=== PATIENT | male | born 1985 | race Caucasian/White ===

== ENCOUNTER 2020-04-16 01:03 | Emergency (ER) | payer MEDICAID, SELFPAY ==
[2020-04-16] VITALS (7 sets, daily range): BP systolic 108–152; BP diastolic 62–80; PULSE 78–105; RESP 16–20; TEMP 36.4–37.1; O2SAT 97–98; BMI 22.9
--- NOTE | 2020-04-16 02:34 | ED_ITS ---
HPI - Alcohol General Chief Complaint: ETOH/Substance Use Stated Complaint: etoh crisis Time Seen by Provider: 04/16/20 02:34 Source: patient and EMS Mode of arrival: EMS Limitations: altered mental status (Intoxicated) History of Present Illness HPI narrative: Patient's history of alcohol abuse and depression been drinking heavily lately per patient's , patient came here intoxicated no signs of head injury, patient with history of depression and been drinking heavily because of depression patient been to detox multiple times last time was about 2 months ago and stayed sober for 1 week patient denied any suicidal ideation MD complaint: alcohol intoxication and alcohol dependence Last drink: Hours (ago) Chronic alcohol use: Yes Previous visits for alcohol intoxication: Yes Recent trauma: No Associated symptoms: nausea and vomiting Treatments prior to arrival: none Related Data Allergies Allergy/AdvReac Type Severity Reaction Status Date / Time No Known Allergies Allergy Unverified 01/10/20 19:47 [No Known Allergies*] Review of Systems Review of Systems: Yes Unobtainable due to mental status PMFSH Past Medical History Medical History Anxiety Depression PTSD (post-traumatic stress disorder) Social History Social History Alcohol intake: current Alcohol intake frequency: 3 or more drinks per day Alcohol type: wine and hard liquor Smoking Status: Current every day smoker Smoked in Last 30 Days: Yes Use of substances other than those prescribed or required for medical reasons: No Advance Directives: No Advance Directives Information Provided: No Physical Exam Vital Signs: Vital Signs: Last Vital Signs Temp 97.9 F 04/16/20 06:23 Pulse 78 04/16/20 06:23 Resp 17 04/16/20 06:23 BP 108/69 04/16/20 06:23 Pulse Ox 97 04/16/20 06:23 Body Mass Index 22.9 Const: General: comfortable, no acute distress, acute distress and intoxicated appearing Nutritional Appearance: average body habitus and well nourished Orientation/consciousness: oriented to person Limitations: altered mental status HENMT: Head: Yes normal to inspection, Yes No palpable skull fracture present and Yes atraumatic Ears: hearing grossly normal bilaterally General nose exam: Normal external nose present Face and sinus: Yes normal facial exam Mouth: Normal oral and palatal mucosa present Teeth and gingiva: dentition normal Throat: Yes posterior oropharynx normal Eyes: General: appearance normal, both eyes and all related structures Pupils: Equal, round and reactive pupils present Neck: Neck: Yes normal visual inspection, Yes full ROM, Yes supple and No midline deformity Chest: Chest palpation & inspection: normal inspection of the chest and normal palpation of entire chest wall Resp: Effort & Inspection: normal respiratory effort Auscultation: clear to auscultation bilaterally Cardio: Rate: regular rate Rhythm: regular rhythm Heart sounds: S1 normal heart sound present and S2 normal heart sound present GI: Inspection: Yes normal to inspection Palpation (GI): Soft to palpation and nontender : General: Yes no CVA tenderness Back/Spine/Pelvis: Back: no CVA tenderness Thoracic/Lumbar Spine: thoracic and lumbar spine normal to inspection Neuro: General: oriented to person Cranial nerves: Yes Equal, round and reactive pupils present MDM - Alcohol MDM Narrative Medical decision making narrative: Patient with history of depression alcohol abuse says that because of depression is drinking heavy asking for some help once he gets over get crisis to evaluate the patient patient denies any abdomi nal pain or vomiting Differential Diagnosis Differential diagnosis: Likely alcohol dependence Medical Records Attestation: I reviewed the patient's medical records. Lab Data Attestation: I reviewed the patient's lab results. Result diagrams: 04/16/20 03:03 04/16/20 03:03 Labs: Lab Results 04/16/20 04/16/20 04/16/20 Range/Units 03:03 03:03 03:03 WBC 4.8 (4.8-10.8) X10*3/uL RBC 4.11 L (4.60-5.80) X10*6/uL Hgb 12.9 L (14.0-18.0) g/dl Hct 36.9 L (42-52) % MCV 89.8 (80-98) fL MCH 31.4 (27.0-33.0) pg MCHC 35.0 (31.0-36.0) g/dl RDW 11.8 (11.0-16.0) % Plt Count 236 (160-400) X10*3/uL MPV 9.4 (9.4-12.4) fL Immature Gran % (Auto) 0.2 (0.0-0.4) % Neut % (Auto) 27.1 L (45-73) % Lymph % (Auto) 60.8 H (20-40) % Humphreys % (Auto) 6.8 (2-11) % Eos % (Auto) 4.1 H (0-4) % Baso % (Auto) 1.0 (0-2) % Lymph # (Auto) 2.9 (1.2-4.9) X10*3/uL [place]ys # (Auto) 0.3 (0.1-1.2) X10*3/uL Eos # (Auto) 0.2 (0.0-0.4) X10*3/uL Baso # (Auto) 0.1 (0.0-0.2) X10*3/uL Abs Immat Gran (auto) 0.01 (0.00-0.03) X10*3/uL Absolute Neuts (auto) 1.3 L (2.0-8.3) X10*3/uL Absolute Nucleated RBC 0.000 (0.0-0.012) X10*3/uL Nucleated RBC % (auto) 0.0 (0.0-0.2) /100WBC Smear Tech's Comments VERIFIED Sodium 141 (135-145) mmol/L Potassium 4.1 (3.3-5.1) mmol/l Chloride 106 (96-108) mmol/L Carbon Dioxide 24 (22-29) mmol/L Anion Gap 15 (12-20) BUN 5 L (9-16) mg/dL Creatinine 0.65 (0.5-1.4) mg/dL Estim Creat Clear Calc 167.4 Estimated GFR > 60 Random Glucose 102 (60-115) mg/dL Calcium 7.9 L (8.4-10.2) mg/dL Magnesium 2.0 (1.6-2.6) mg/dL Total Bilirubin 0.4 (0.0-1.0) mg/dL Direct Bilirubin 0.2 (0.0-0.5) mg/dL AST 38 H (5-37) U/L ALT 39 (0-40) U/L Alkaline Phosphatase 88 (39-117) U/L Total Protein 6.1 L (6.5-8.0) g/dL Albumin 3.9 (3.5-5.0) g/dL Lipase 121 H (8-78) U/L Ethyl Alcohol 410 H* mg/dL Discharge Plan Discharge Clinical Impression: Alcoholic intoxication Qualifiers: Complication of substance-induced condition: uncomplicated Qualified Code(s): F10.920 - Alcohol use, unspecified with intoxication, uncomplicated Depression Qualifiers: Depression Type: major depressive disorder Major depression recurrence: recurrent Active/Remission status: currently active Major depression episode severity: moderate Qualified Code(s): F33.1 - Major depressive disorder, recurrent, moderate
--- NOTE | 2020-04-16 03:02 | PC.NURSE ---
PT's called the unit for an update. Consent to disclose information to the was obtained from the PT. stated that the PT has been dealing with severe psychiatric problems for a long time and uses alcohol as his primary coping mechanism. PT has detoxed in the past but continues to use alcohol to deal with his stresses in life. stated that the PT frequently makes suicidal remarks to her and she strongly believes that her needs inpatient psychiatric treatment otherwise he will continue to drink and cause further detriment to health.
[2020-04-16 03:09] LABS: Basophils Absolute Auto 0.1 X10*3/uL (0.0-0.2); Eosinophils Absolute Auto 0.2 X10*3/uL (0.0-0.4); Eosinophils Percent Auto 4.1 % (0-4); Hematocrit 36.9 % (42-52); Hemoglobin 12.9 g/dl (14.0-18.0); Imm Gran Abs Auto 0.01 X10*3/uL (0.00-0.03); Imm Gran Pct Auto 0.2 % (0.0-0.4); Lymphocytes Absolute Auto 2.9 X10*3/uL (1.2-4.9); Lymphocytes Percent Auto 60.8 % (20-40); Mean Corpuscular Hemoglobin 31.4 pg (27.0-33.0); Mean Corpuscular Volume 89.8 fL (80-98); Mean Platelet Volume 9.4 fL (9.4-12.4); Monocytes Absolute Auto 0.3 X10*3/uL (0.1-1.2); Monocytes Percent Auto 6.8 % (2-11); Neutrophils Absolute Auto 1.3 X10*3/uL (2.0-8.3); Neutrophils Percent Auto 27.1 % (45-73); Platelet Count 236 X10*3/uL (160-400); Red Blood Count 4.11 X10*6/uL (4.60-5.80); Red Cell Distribution Width 11.8 % (11.0-16.0); SCAN SMEAR FLAG 1; White Blood Count 4.8 X10*3/uL (4.8-10.8)
[2020-04-16 03:11] LABS: MANUAL DIFF FLAG SCAN
[2020-04-16 03:26] LABS: SLIDE REVIEW VERIFIED
[2020-04-16 03:33] LABS: Ethanol 410 mg/dL
[2020-04-16 03:58] LABS: Alanine Aminotransferase 39 U/L (0-40); Albumin Level 3.9 g/dL (3.5-5.0); Alkaline Phosphatase 88 U/L (39-117); Anion Gap 15 (12-20); Aspartate Amino Transferase 38 U/L (5-37); Bilirubin Direct 0.2 mg/dL (0.0-0.5); Bilirubin Total 0.4 mg/dL (0.0-1.0); Blood Urea Nitrogen 5 mg/dL (9-16); Calcium 7.9 mg/dL (8.4-10.2); Carbon Dioxide 24 mmol/L (22-29); Chloride 106 mmol/L (96-108); Creatinine Clr Calc Pharmacy 167.4; Estimated Glomerular Filt Rate > 60; Glucose Random 102 mg/dL (60-115); Lipase 121 U/L (8-78); Potassium 4.1 mmol/l (3.3-5.1); Sodium 141 mmol/L (135-145); Total Protein 6.1 g/dL (6.5-8.0)
[2020-04-16] MEDS: 0.9 % Sodium Chloride 1,000 ML 999 ML IVCONT (05:38)
[2020-04-16] MEDS: ondansetron HCL 4 MG/2 ML VIAL IVPUSH (05:41)
[2020-04-16] MEDS: Famotidine/PF 20 MG/2 ML VIAL IVPUSH (05:41)
--- NOTE | 2020-04-16 05:46 | PC.NURSE ---
PATIENT TRANSFERRED FROM THE POD FOR IV FLUIDS. IV ESTABLISHED. FLUID INTIATED, MEDICATED CHARTED. SITTER MAINTAINED. BREATHING EVEN, NON-LABORED. PATIENT ATTEMPTING TO SLEEP AT THIS TIME.
--- NOTE | 2020-04-16 07:46 | PC.NURSE ---
Pt transferred from main ED. Pt alert, gait steady. Denies any symptoms of withdrawal at this time.
[2020-04-16 08:56] LABS: Amphetamine Screen Urine Not Detected (Not Detect); Barbiturates, Urine Not Detected (Not Detect); Benzodiazepines Screen Urine Not Detected (Not Detect); Cannabinoid Screen Urine Not Detected (Not Detect); Cocaine Screen Urine Not Detected (Not Detect); Opiate Screen Urine Not Detected (Not Detect); Phencyclidine Screen Urine Not Detected (Not Detect)
--- NOTE | 2020-04-16 09:57 | PC.NURSE ---
Pt resting in room, awakened for CIWA assessment- denies any symptoms of withdrawal. Pt denies SI, is uncertain about whether he would be open to detox.
--- NOTE | 2020-04-16 11:22 | PC.NURSE ---
Pt awake bruiefly, aware that [facility] is here for evaluation.
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
== END 2020-04-16 15:57 | disposition home or self-care (01) ==
PROVIDERS: Emergency Provider Internal Medicine
DX: F10.120 Alcohol abuse with intoxication, uncomplicated (principal); Y90.8 Blood alcohol level of 240 mg/100 ml or more; F33.1 Major depressive disorder, recurrent, moderate; F17.200 Nicotine dependence, unspecified, uncomplicated
CPT/HCPCS: 36415; 80048; 80076; 80307; 80320; 83690; 83735; 85025; 96361; 96374; 96375; 99284; 99285; J2405

== ENCOUNTER 2020-04-27 00:18 | Emergency (ER) | payer MEDICAID, SELFPAY ==
[2020-04-27] VITALS (7 sets, daily range): BP systolic 102–139; BP diastolic 47–74; PULSE 20–115; RESP 16–22; TEMP 36.4–36.8; O2SAT 96–100; BMI 19.4
--- NOTE | 2020-04-27 00:26 | ED_ITS ---
HPI - Alcohol General Chief Complaint: ETOH/Substance Use Stated Complaint: ETOH Time Seen by Provider: 04/27/20 00:25 Source: patient Mode of arrival: ambulatory Limitations: no limitations History of Present Illness MD complaint: alcohol intoxication Last drink: Just prior to admission Chronic alcohol use: Yes Previous visits for alcohol intoxication: No Recent trauma: No Associated symptoms: denies other symptoms Treatments prior to arrival: none Related Data Allergies Allergy/AdvReac Type Severity Reaction Status Date / Time No Known Allergies Allergy Unverified 01/10/20 19:47 [No Known Allergies*] Review of Systems Review of Systems: Constitutional : No Fever, No Chills ENT/Mouth : No Ear Pain, No Nasal Congestion, No sore throat Eyes: no eye pain, no eye swelling Cardiovascular : No Chest Pain, No SOB Respiratory : No Cough, No Sputum, No Dyspnea Gastrointestinal : No Nausea, No Vomiting, No Diarrhea, No Hematochezia, No Melena Genitourinary : No Dysuria, No Urinary Frequency, No Hematuria Musculoskeletal : No Myalgias Skin : No Skin Lesions, No rash Neuro : No Weakness, No Numbness, No Paresthesias, No Dizziness, No Headache Psych : positive Anxiety, no Depression, no SI/HI Heme/Lymph: No Lymphadenopathy Endocrine : No Polyuria, No Polydipsia All other systems reviewed and are negative [facility] Past Medical History Attestation statement: The following information was validated with the patient. Medical History Anxiety Depression PTSD (post-traumatic stress disorder) Social History Social History Alcohol intake: current Alcohol intake frequency: 3 or more drinks per day Alcohol type: wine and hard liquor Smoking Status: Heavy tobacco smoker Smoked in Last 30 Days: Yes Use of substances other than those prescribed or required for medical reasons: No Physical Exam Vital Signs: Vital Signs: Last Vital Signs Temp 97.9 F 04/27/20 00:24 Pulse 115 H 04/27/20 00:24 Resp 22 H 04/27/20 00:24 BP 139/74 04/27/20 00:24 Pulse Ox 96 04/27/20 00:24 Body Mass Index 19.4 Appearance: Alert. Oriented X3. No acute distress. Tearful, intoxicated, Anxious Eyes: Pupils equal, round and reactive to light. ENT: Pharynx normal. Neck: Normal inspection. Neck supple. CVS: tachycardic heart rate and rhythm. Pulses normal. Respiratory: No respiratory distress. Breath sounds normal. Abdomen: Soft and non-tender. Skin: Skin warm and dry. Normal skin color. Normal skin turgor. Extremities: No lower extremity edema. No calf ttp Neuro: Oriented X 3. No motor deficit. No sensory deficit. Course Course Course Narrative: signed out to Dr. Desai pending sobriety MDM - Alcohol [facility] Narrative Medical decision making narrative: 34 yo male with PTSD and ETOH abuse here intoxicated, no trauma, does not want detox, will allow him to sober up and reassess, he has no SI Discharge Plan Discharge Clinical Impression: Alcoholic intoxication Qualifiers: Complication of substance-induced condition: uncomplicated Qualified Code(s): F10.920 - Alcohol use, unspecified with intoxication, uncomplicated Patient Disposition: Home, Self-Care Instructions: Abuse of Alcohol (ED) Additional Instructions: return to ED for any worsening symptoms or concerns please consider detox Stand Alone Forms: Work/School Release
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
[2020-04-27 03:20] LABS: MANUAL DIFF FLAG NO
[2020-04-27 03:21] LABS: Basophils Percent Auto 0.9 % (0-2); Eosinophils Absolute Auto 0.1 X10*3/uL (0.0-0.4); Hematocrit 44.4 % (42-52); Hemoglobin 15.4 g/dl (14.0-18.0); Imm Gran Abs Auto 0.02 X10*3/uL (0.00-0.03); Imm Gran Pct Auto 0.4 % (0.0-0.4); Lymphocytes Absolute Auto 2.8 X10*3/uL (1.2-4.9); Lymphocytes Percent Auto 59.7 % (20-40); Mean Corpuscular HGB Conc 34.7 g/dl (31.0-36.0); Mean Corpuscular Hemoglobin 32.2 pg (27.0-33.0); Mean Corpuscular Volume 92.7 fL (80-98); Monocytes Absolute Auto 0.3 X10*3/uL (0.1-1.2); Monocytes Percent Auto 5.6 % (2-11); Neutrophils Absolute Auto 1.4 X10*3/uL (2.0-8.3); Neutrophils Percent Auto 30.4 % (45-73); Platelet Count 319 X10*3/uL (160-400); Red Blood Count 4.79 X10*6/uL (4.60-5.80); Red Cell Distribution Width 13.2 % (11.0-16.0); White Blood Count 4.7 X10*3/uL (4.8-10.8)
[2020-04-27 03:52] LABS: Ethanol 351 mg/dL
[2020-04-27 03:56] LABS: Alanine Aminotransferase 19 U/L (0-40); Albumin Level 4.3 g/dL (3.5-5.0); Alkaline Phosphatase 92 U/L (39-117); Aspartate Amino Transferase 18 U/L (5-37); Bilirubin Total < 0.2 mg/dL (0.0-1.0); Blood Urea Nitrogen 4 mg/dL (9-16); Calcium 8.5 mg/dL (8.4-10.2); Creatinine Clr Calc Pharmacy 120.8; Estimated Glomerular Filt Rate > 60; Glucose Random 107 mg/dL (60-115); Total Protein 6.8 g/dL (6.5-8.0)
[2020-04-27 04:03] LABS: Anion Gap 15 (12-20); Carbon Dioxide 25 mmol/L (22-29); Chloride 111 mmol/L (96-108); Potassium 4.1 mmol/l (3.3-5.1); Sodium 147 mmol/L (135-145)
[2020-04-27 04:39] LABS: Amphetamine Screen Urine Not Detected (Not Detect); Barbiturates, Urine Not Detected (Not Detect); Benzodiazepines Screen Urine Not Detected (Not Detect); Cannabinoid Screen Urine Not Detected (Not Detect); Cocaine Screen Urine Not Detected (Not Detect); Opiate Screen Urine Not Detected (Not Detect); Phencyclidine Screen Urine Not Detected (Not Detect)
--- NOTE | 2020-04-27 05:23 | PC.NURSE ---
SLEEPING NO APPARENT DISTRESS AT THIS TIME.
--- NOTE | 2020-04-27 06:01 | PC.NURSE ---
REPORT GIVEN TO NICHELLE LIND ABOUT PATIENT. WAITING FOR OK TO TRANSFER TO POD. REMAINS IN BEHAVIORAL CONTROL. CONTINUES TO DENY SI.
--- NOTE | 2020-04-27 06:13 | PC.NURSE ---
TRANSFERRED TO THE POD. CALM AND COOPERATIVE. FAXED TO [facility] SPOKE WITH FELIPE. PATIENT CONTINUES TO BE VOLUNTARY TO SEE Franky
--- NOTE | 2020-04-27 06:51 | PC.NURSE ---
Patient got transferred from main ED, calm and cooperative, very pleasant, [facility] faxed/called/spoke with ETA/confirmed receipt of referral,/[facility] made aware of ETOH level, patient currently in bed appears resting, no distress reported/observed, will continue to monitor.
--- NOTE | 2020-04-27 07:12 | PC.NURSE ---
Report received from LELO Galaviz. Pt awake, alert, eating breakfast. Affect even. No concerns reported.
--- NOTE | 2020-04-27 09:27 | PC.NURSE ---
Pt awake, alert. Denies any symptoms of withdrawal.
--- NOTE | 2020-04-27 10:25 | PC.NURSE ---
[facility] called to confirm receipt of fax
--- NOTE | 2020-04-27 12:38 | PC.NURSE ---
[facility] indicating that they will be unable to assess until after 1500. CARE team called, spoke w/ Rayray.
--- NOTE | 2020-04-27 13:57 | PC.NURSE ---
CARE team in w/ pt
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
== END 2020-04-27 15:04 | disposition home or self-care (01) ==
PROVIDERS: Internal Medicine; Emergency Provider Emergency Medicine
DX: F10.920 Alcohol use, unspecified with intoxication, uncomplicated (principal); R45.851 Suicidal ideations; F17.200 Nicotine dependence, unspecified, uncomplicated; Z71.6 Tobacco abuse counseling; Z71.41 Alcohol abuse counseling and surveillance of alcoholic
CPT/HCPCS: 80053; 80307; 80320; 83735; 85025; 99284; 99285

== ENCOUNTER 2020-05-13 22:42 | Emergency (ER) | payer MEDICAID, SELFPAY ==
[2020-05-13 22:45] VITALS: BP 148/90; PULSE 120; RESP 20; TEMP 36.8; O2SAT 95; BMI 19.9
--- NOTE | 2020-05-14 01:00 | ED.GENADULT ---
HPI - General Adult General Chief complaint: ETOH/Substance Use Stated complaint: detox Time Seen by Provider: 05/13/20 23:12 Source: patient Mode of arrival: EMS Limitations: no limitations History of Present Illness HPI narrative: 34-year-old male who was brought to emergency department for evaluation of acute alcohol toxication. According to the nursing notes, the patient did make suicidal statements to his and he told the nurse that he just wants to drink himself into a living in. The patient told me that he is not suicidal and has no plans. He states the does have a long history of alcohol use disorder and has been drinking heavily over the past 5 years. He states that he drink a significant amount of wine and vodka today but cannot recount the amount. The patient states that he was in a 50 day lock up on a [address] and has been out for approximately 2 months. He states that he continues to drink daily. The patient denied fever, chills, headache, nausea, vomiting, abdominal pain, change in his bowel movements. Related Data Home Medications Medication Instructions Recorded Confirmed oxcarbazepine 600 mg PO BID 04/27/20 04/27/20 trazodone 50 mg PO BEDTIME 04/27/20 04/27/20 Allergies Allergy/AdvReac Type Severity Reaction Status Date / Time No Known Allergies Allergy Unverified 01/10/20 19:47 [No Known Allergies*] Review of Systems Review of Systems: Yes all other systems are reviewed and are negative Neurologic: Reports Abnormal speech present [facility] Past Medical History [facility] Narrative: The patient has a history of depression and anxiety. He is . He smokes 1/2 pack of cigarettes per day times 20 years, he drinks alcohol daily, he denies drug use Medical History Anxiety Depression PTSD (post-traumatic stress disorder) Social History Social History Alcohol intake: current Alcohol intake frequency: 3 or more drinks per day Alcohol type: wine and hard liquor Smoking Status: Heavy tobacco smoker Last Used Substance: Just Prior to Admission Advance Directives: No Physical Exam Vital Signs: Vital Signs: Last Vital Signs Temp 98.2 F 05/13/20 22:45 Pulse 120 H 05/13/20 22:45 Resp 20 05/13/20 22:45 BP 148/90 H 05/13/20 22:45 Pulse Ox 95 05/13/20 22:45 Body Mass Index 19.9 Const: General: cooperative, intoxicated appearing (Strong odor of alcohol on breath) and other Orientation/consciousness: oriented to person and oriented to place Limitations: no limitations HENMT: Head: Yes normal to inspection, Yes normocephalic and Yes atraumatic Ears: external ears normal General nose exam: Normal external nose present Face and sinus: Yes normal facial exam Mouth: Normal oral and palatal mucosa present Throat: Yes posterior oropharynx normal Eyes: Periorbital: periorbital findings normal Eyelids: Yes eyelids normal Conjunctivae: conjunctivae normal Sclerae: sclerae normal Corneas: corneas normal Pupils: Equal, round and reactive pupils present Direct Ophthalmoscopy: normal light reflex Neck: Neck: Yes full ROM, Yes no lymphadenopathy, Yes no meningeal signs, Yes trachea midline and Yes supple Chest: Chest palpation & inspection: normal inspection of the chest and normal palpation of entire chest wall Resp: Effort & Inspection: normal respiratory effort and able to speak in complete sentences Auscultation: clear to auscultation bilaterally Cardio: Rate: regular rate Rhythm: regular rhythm Heart sounds: S1 normal heart sound present, S2 normal heart sound present and no murmurs GI: Inspection: Yes normal to inspection Palpation (GI): Soft to palpation, nontender, no guarding, not rigid and No hepatosplenomegaly present : General: Yes no CVA tenderness Back/Spine/Pelvis: Back: no CVA tenderness Cervical Spine: normal cervical lordosis Thoracic/Lumbar Spine: thoracic and lumbar spine normal to inspection Skin: Lesions: no lesions Rashes: no rashes Wounds: no wounds Neuro: General: oriented to person, oriented to place and no meningeal signs Cranial nerves: Yes CN's II-XII intact bilaterally and Yes Equal, round and reactive pupils present Cognition (Neuro): normal cognition Speech: Abnormal speech present Motor exam (neuro): 5/5 motor strength present throughout Extrem: General: Yes normal to inspection and Yes full ROM Psych: Appearance: well kempt Mental Status: mental status grossly normal Speech and movement: Normal speech and movement present Affect: normal affect Attitude: cooperative Thought process: Normal thought process present Thought content: Normal thought content present, suicidality and no homicidality Insight: Good insight present (Psych) Judgement: Good judgement present (Psych) Course Course Course Narrative: 34-year-old male with history of alcohol use disorder who presents to the emergency department for evaluation acute alcohol intoxication reported suicidal ideation. The patient denies being suicidal or homicidal. He does appear to be acutely intoxicated. I did order laboratory evaluation on this patient. The patient was also ordered to get normal saline x1 L and Zofran 4 mg IV. 0157: LABORATORY EVALUATION REVEALED NORMAL CBC, SLIGHT ELEVATION IN HIS AST OF 38 AND AN ELEVATED ALCOHOL LEVEL OF 304. THE PATIENT HAS HAD SIMILAR ELEVATIONS WAS ALCOHOL LEVEL IN THE PAST. THE PATIENT WILL BE KEPT IN THE EMERGENCY DEPARTMENT UNTIL HE IS SOBER. IF THE PATIENT EXPRESSES SUICIDAL IDEATION WHEN HE IS SOBER THEN HE WILL NEED A CRISIS EVALUATION. AT THE END OF MY SHIFT, THE PATIENT'S CARE WAS TURNED OVER TO MY COLLEAGUE, DR. ASIA SANDERSON. Medical Decision Making Lab Data Result diagrams: 05/14/20 01:06 05/14/20 01:06 Labs: Lab Results 05/14/20 05/14/20 05/14/20 Range/Units 01:06 01:06 01:06 WBC 7.0 (4.8-10.8) X10*3/uL RBC 5.47 (4.60-5.80) X10*6/uL Hgb 17.1 (14.0-18.0) g/dl Hct 48.6 (42-52) % MCV 88.8 (80-98) fL MCH 31.3 (27.0-33.0) pg MCHC 35.2 (31.0-36.0) g/dl RDW 12.3 (11.0-16.0) % Plt Count 325 (160-400) X10*3/uL MPV 9.0 L (9.4-12.4) fL Immature Gran % (Auto) 0.0 (0.0-0.4) % Neut % (Auto) 29.9 L (45-73) % Lymph % (Auto) 62.6 H (20-40) % [place] % (Auto) 5.1 (2-11) % Eos % (Auto) 1.1 (0-4) % Baso % (Auto) 1.3 (0-2) % Lymph # (Auto) 4.4 (1.2-4.9) X10*3/uL [place] # (Auto) 0.4 (0.1-1.2) X10*3/uL Eos # (Auto) 0.1 (0.0-0.4) X10*3/uL Baso # (Auto) 0.1 (0.0-0.2) X10*3/uL Abs Immat Gran (auto) 0.00 (0.00-0.03) X10*3/uL Absolute Neuts (auto) 2.1 (2.0-8.3) X10*3/uL Absolute Nucleated RBC 0.000 (0.0-0.012) X10*3/uL Nucleated RBC % (auto) 0.0 (0.0-0.2) /100WBC Smear Tech's Comments VERIFIED Sodium 139 (135-145) mmol/L Potassium 4.0 (3.3-5.1) mmol/l Chloride 99 (96-108) mmol/L Carbon Dioxide 23 (22-29) mmol/L Anion Gap 21 H (12-20) BUN 7 L D (9-16) mg/dL Creatinine 0.70 (0.5-1.4) mg/dL Estim Creat Clear Calc 131.2 Estimated GFR > 60 Random Glucose 82 (60-115) mg/dL Calcium 8.9 (8.4-10.2) mg/dL Total Bilirubin 1.0 (0.0-1.0) mg/dL AST 38 H D (5-37) U/L ALT 23 (0-40) U/L Alkaline Phosphatase 110 (39-117) U/L Total Protein 7.4 (6.5-8.0) g/dL Albumin 4.7 (3.5-5.0) g/dL Lipase 63 (8-78) U/L Ethyl Alcohol 304 H* mg/dL Discharge Plan Discharge Prescriptions: No Action trazodone 50 mg Tablet 50 mg PO BEDTIME RF: 0 oxcarbazepine 600 mg Tablet 600 mg PO BID RF: 0
[2020-05-14 01:10] LABS: Basophils Absolute Auto 0.1 X10*3/uL (0.0-0.2); Basophils Percent Auto 1.3 % (0-2); Eosinophils Absolute Auto 0.1 X10*3/uL (0.0-0.4); Eosinophils Percent Auto 1.1 % (0-4); Hematocrit 48.6 % (42-52); Hemoglobin 17.1 g/dl (14.0-18.0); Lymphocytes Absolute Auto 4.4 X10*3/uL (1.2-4.9); Lymphocytes Percent Auto 62.6 % (20-40); Mean Corpuscular HGB Conc 35.2 g/dl (31.0-36.0); Mean Corpuscular Hemoglobin 31.3 pg (27.0-33.0); Mean Corpuscular Volume 88.8 fL (80-98); Monocytes Absolute Auto 0.4 X10*3/uL (0.1-1.2); Monocytes Percent Auto 5.1 % (2-11); Neutrophils Absolute Auto 2.1 X10*3/uL (2.0-8.3); Neutrophils Percent Auto 29.9 % (45-73); Platelet Count 325 X10*3/uL (160-400); Red Blood Count 5.47 X10*6/uL (4.60-5.80); Red Cell Distribution Width 12.3 % (11.0-16.0); SCAN SMEAR FLAG 1
[2020-05-14] MEDS: 0.9 % Sodium Chloride 1,000 ML 999 ML IV (01:10)
[2020-05-14] MEDS: ondansetron HCL 4 MG/2 ML VIAL IVPUSH (01:10)
[2020-05-14 01:12] LABS: MANUAL DIFF FLAG SCAN
[2020-05-14 01:31] LABS: SLIDE REVIEW VERIFIED
[2020-05-14 01:40] LABS: Ethanol 304 mg/dL
[2020-05-14 01:47] LABS: Alanine Aminotransferase 23 U/L (0-40); Albumin Level 4.7 g/dL (3.5-5.0); Alkaline Phosphatase 110 U/L (39-117); Anion Gap 21 (12-20); Aspartate Amino Transferase 38 U/L (5-37); Blood Urea Nitrogen 7 mg/dL (9-16); Calcium 8.9 mg/dL (8.4-10.2); Carbon Dioxide 23 mmol/L (22-29); Chloride 99 mmol/L (96-108); Creatinine Clr Calc Pharmacy 131.2; Estimated Glomerular Filt Rate > 60; Glucose Random 82 mg/dL (60-115); Lipase 63 U/L (8-78); Sodium 139 mmol/L (135-145); Total Protein 7.4 g/dL (6.5-8.0)
[2020-05-14 02:18] VITALS: BP 112/61; PULSE 77; RESP 17; TEMP 35.4; O2SAT 98
--- NOTE | 2020-05-14 04:42 | PC.NURSE ---
Addendum entered by Candida Gutierrez 05/14/20 04:42: AMBULATORY TO POD, GAIT STEADY. PT ALERT AND ORIENTED X 3. Original Note: pT MOVED TO ED [facility] P[facility] BED 3. REPORT TO SHUN Campbell RN.
--- NOTE | 2020-05-14 05:13 | PC.NURSE ---
Pharmacy called to complete med rec.
[2020-05-14 06:00] VITALS: BP 131/67; PULSE 103; RESP 18; TEMP 36.9; O2SAT 94
--- NOTE | 2020-05-14 07:06 | PC.NURSE ---
report taken from junior duarte pt resting in bed, appears to be sleeping, rr even/unlabored. wctm.
[2020-05-14 07:42] LABS: Amphetamine Screen Urine Not Detected (Not Detect); Barbiturates, Urine Not Detected (Not Detect); Benzodiazepines Screen Urine Not Detected (Not Detect); Cannabinoid Screen Urine Not Detected (Not Detect); Cocaine Screen Urine Not Detected (Not Detect); Opiate Screen Urine Not Detected (Not Detect); Phencyclidine Screen Urine Not Detected (Not Detect)
[2020-05-14] MEDS: OXcarbazepine 300 MG TABLET 600 MG PO (08:32)
--- NOTE | 2020-05-14 08:46 | MHC.RECOVSUP ---
Recovery Support note: Patient is a 34 year old Stateless speaking male who [place] [facility] [place] due to intoxication and SI statements. Patient denied SI in the ED and reported a desire to go to detox. This scenario writer met with patient to confirm that he is still interested in detox. Patient acknowledges that it is in his best interest and that he is willing to go. Patient reports drinking 1-2 pints almost every day. Patient does not have insurance and does not have an ID on him however he reports he has an ID at home. Patient is currently on the wait list at [facility]. [facility] reports that they do not have any beds at this time.
[2020-05-14 08:57] VITALS: BP 159/77; PULSE 120; TEMP 36.9; O2SAT 95
--- NOTE | 2020-05-14 09:14 | PC.NURSE ---
pt took morning medications, spoke w over phone. calm and cooperative. ambulating w smooth steady gait.
--- NOTE | 2020-05-14 10:34 | MHC.RECOVSUP ---
Recovery Support note: No beds available in [place] Patient information faxed to [facility] in [place]. They report they have beds and patient is appropriate however they accept walk-ins on a first come first serve basis. Relayed this information to patient and he plans to get his ID from home along with his belongings and go to [place] for treatment. [facility] reports if the beds fill by the time he gets there they will work with him on finding placement. Patient continues to deny SI and reports he is feeling safe to discharge with the plan in place. Discussed case with patient's RN and ED provider. Patient transported home via [employer].
== END 2020-05-14 10:27 | disposition home or self-care (01) ==
PROVIDERS: Emergency Provider Emergency Medicine Emergency Medical Services
DX: F10.120 Alcohol abuse with intoxication, uncomplicated (principal); Y90.8 Blood alcohol level of 240 mg/100 ml or more
CPT/HCPCS: 36415; 80053; 80307; 80320; 83690; 85025; 96361; 96374; 99285; J2405

== ENCOUNTER 2020-06-23 23:03 | Emergency (ER) | payer MEDICAID, SELFPAY ==
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
[2020-06-23 23:19] VITALS: BP 124/64; PULSE 105; RESP 18; TEMP 35.8; O2SAT 100; BMI 17.7
--- NOTE | 2020-06-23 23:57 | ED.ALCOHOL ---
HPI - Alcohol General Chief Complaint: ETOH/Substance Use Stated Complaint: etoh Time Seen by Provider: 06/23/20 23:57 Source: patient and EMS Mode of arrival: EMS Limitations: no limitations History of Present Illness HPI narrative: Patient comes emergency room via EMS. Seems that the patient drank too much vodka, patient was unable to stand up without assistance. EMS brought him to the emergency room. Patient has no complaints other than drinking too much. Patient is very intoxicated, unable to give any significant history, states he is not suicidal/homicidal. Patient states that he is angry at his for calling EMS MD complaint: alcohol intoxication Related Data Home Medications Medication Instructions Recorded Confirmed oxcarbazepine 600 mg PO BID 04/27/20 05/14/20 trazodone 50 mg PO BEDTIME 04/27/20 05/14/20 Allergies Allergy/AdvReac Type Severity Reaction Status Date / Time No Known Allergies Allergy Unverified 01/10/20 19:47 [No Known Allergies*] Review of Systems Review of Systems: Yes Unobtainable due to mental condition (Alcohol intoxication) [facility] Past Medical History Medical History (Updated 06/24/20 @ 02:06 by Alissa Arvizu MD) Alcohol abuse Anxiety Depression PTSD (post-traumatic stress disorder) Social History Social History Alcohol intake: current Alcohol intake frequency: 3 or more drinks per day Alcohol type: wine and hard liquor Smoking Status: Heavy tobacco smoker Advance Directives: No Physical Exam Vital Signs: Vital Signs: Last Vital Signs Temp 97.0 F 06/24/20 00:00 Pulse 95 06/24/20 02:02 Resp 16 06/24/20 02:02 BP 103/60 06/24/20 02:02 Pulse Ox 97 06/24/20 02:02 Body Mass Index 17.7 Appearance: Alert. Oriented x2, intoxicated, loud, ENT: Pharynx normal. Neck: Normal inspection. Neck supple. No lymph nodes noted. No crepitus CVS: Normal heart rate and rhythm. Pulses normal. Normal S1 and S2 Respiratory: No respiratory distress. Breath sounds normal. No Wheezing. No rales Abdomen: Soft and nontender. No rigidity. No distention. Skin: Skin warm and dry. Extremities: No lower extremity edema. Neuro: Oriented x2, unable to walk by himself, intoxicated, swearing Course Course Course Narrative: Patient remains sleeping, wakes up to sternal rub. When patient is sober, patient's nurse will offer him all the information for detox and he can make his own phone calls. Sign-out given to Dr. Cade Discharge Plan Discharge Clinical Impression: Alcohol abuse, Alcoholic intoxication Patient Disposition: Home, Self-Care Instructions: Abuse of Alcohol (ED), Alcohol Intoxication (ED) Additional Instructions: Please follow-up with your primary care physician tomorrow. If you have any worsening or new symptoms, please return to the emergency room or call 911 Prescriptions: No Action trazodone 50 mg Tablet 50 mg PO BEDTIME RF: 0 oxcarbazepine 600 mg Tablet 600 mg PO BID RF: 0
[2020-06-24] VITALS: BP 111/65; PULSE 89; RESP 18; TEMP 36.1; O2SAT 97
--- NOTE | 2020-06-24 01:21 | PC.NURSE ---
SABIHA SIERRA [phone] PT AND WILL BE ABLE GIVE PT A RIDE HOME.
--- NOTE | 2020-06-24 01:32 | PC.NURSE ---
PT SLEEPING RR EVEN REG, NO S/S OF DISTRESS. SKIN WARM AND DRY. NO TREMERS VISABLE OR FELT. PT CALLED IN AND WANTS THE PT TO BE SECTIONED TO GET HELP WITH HIS DRINKING. PT WAS JUST SECTION 35 BY HIS MOM LAST MONTH.
[2020-06-24 02:02] VITALS: BP 103/60; PULSE 95; RESP 16; O2SAT 97
[2020-06-24 03:19] VITALS: PULSE 83; RESP 18; O2SAT 97
[2020-06-24 04:34] VITALS: PULSE 87; RESP 16; O2SAT 98
--- NOTE | 2020-06-24 04:42 | PC.NURSE ---
pt on his cell phone trying to get his to pick him up. pt is asking us to give him a ride home and that he is not to come home till he gets into detox. pt is arguing with his on the phone.
== END 2020-06-24 04:56 | disposition home or self-care (01) ==
PROVIDERS: Emergency Provider Emergency Medicine
DX: F10.120 Alcohol abuse with intoxication, uncomplicated (principal); F41.9 Anxiety disorder, unspecified; F43.10 Post-traumatic stress disorder, unspecified; F32.9 Major depressive disorder, single episode, unspecified
CPT/HCPCS: 99283; 99284

== ENCOUNTER 2020-07-29 21:23 | Emergency (ER) | payer OTHER, SELFPAY ==
[2020-07-29 21:29] VITALS: BP 139/73; PULSE 125; RESP 20; TEMP 37.2; O2SAT 95; BMI 19.2
[2020-07-29] MEDS: 0.9 % Sodium Chloride 1,000 ML 999 ML IV ×2 (22:15→22:45)
[2020-07-29 22:16] VITALS: BP 135/76; PULSE 133; RESP 15; TEMP 36.6; O2SAT 96
--- NOTE | 2020-07-29 22:16 | ED_ITS ---
HPI - Alcohol General Chief Complaint: ETOH/Substance Use Stated Complaint: CRISIS Time Seen by Provider: 07/29/20 22:12 History of Present Illness HPI narrative: 44-year-old male with a long history of alcohol abuse. Presented today after drinking heavily. Patient denies any suicidal homicidal ideation. Patient has a history of PTSD. Family wants patient to be evaluated. No cough no congestion or upper respiratory symptoms. No diaphoresis. Related Data Home Medications Medication Instructions Recorded Confirmed oxcarbazepine 600 mg PO BID 04/27/20 05/14/20 trazodone 50 mg PO BEDTIME 04/27/20 05/14/20 Allergies Allergy/AdvReac Type Severity Reaction Status Date / Time No Known Allergies Allergy Unverified 01/10/20 19:47 [No Known Allergies*] Review of Systems Review of Systems: Constitutional: No Weight loss, No Fever, No Chills, No Night Sweats, No Fatigue, No Malaise ENT/Mouth: No Hearing loss, No Ear Pain, No Nasal Congestion, No Sinus Pain, No Hoarseness, No sore throat, No Rhinorrhea, No Swallowing Difficulty Eyes: No Eye Pain, No Swelling, No Redness, No Foreign Body, No Discharge, No Vision Changes Cardiovascular: No Chest Pain, No SOB, No Dyspnea on Exertion, No Orthopnea, No Edema, No Palpitations Respiratory: No Cough, No Sputum, No Wheezing, No Smoke Exposure, No Dyspnea Gastrointestinal: No Nausea, No Vomiting, No Diarrhea, No Constipation, No abdominal Pain, No Hematochezia, No Melena Genitourinary: no irregular bleeding, No Dysuria, No Urinary Frequency, No Hematuria, No Urinary Incontinence, No Urgency, No Flank Pain, No Urinary Flow Changes, No Hesitancy Musculoskeletal: No joint pain, No Myalgias, No Joint Swelling Skin: No Skin Lesions, No rash Neuro: No Weakness, No Numbness, No Paresthesias, No Loss of Consciousness, No Dizziness, No Headache Psych: No Anxiety/Panic, No Depression, No SI/HI/AH/VH, No Social Issues, Heme/Lymph: No Bruising, No Bleeding,No Lymphadenopathy Endocrine: No Polyuria, No Polydipsia, No Temperature Intolerance PMFSH Past Medical History Medical History Alcohol abuse Anxiety Depression PTSD (post-traumatic stress disorder) Social History Social History Alcohol intake: current Alcohol intake frequency: 3 or more drinks per day Alcohol type: wine and hard liquor Smoking Status: Current every day smoker Use of substances other than those prescribed or required for medical reasons: No Advance Directives: No Advance Directives Information Provided: No Physical Exam Vital Signs: Vital Signs: Last Vital Signs Temp 97.9 F 07/29/20 22:16 Pulse 133 H 07/29/20 22:16 Resp 15 07/29/20 22:16 BP 135/76 07/29/20 22:16 Pulse Ox 96 07/29/20 22:16 Body Mass Index 19.2 Appearance: Alert. Oriented X3. No acute distress. Eyes: Pupils equal, round and reactive to light. ENT: Pharynx normal. Neck: Normal inspection. Neck supple. No lymph nodes noted. No crepitus CVS: Normal heart rate and rhythm. Pulses normal. Normal S1 and S2 Respiratory: No respiratory distress. Breath sounds normal. No Wheezing. No rales Abdomen: Soft and nontender. No rigidity. No distention. good BS x4 Skin: Skin warm and dry. Normal skin color. Normal skin turgor. Extremities: No lower extremity edema. Neurovascular intact to all extremities. No Lacerations. No Rash Neuro: Oriented X 3. No motor deficit. No sensory deficit. Moving all extermities. No slurred speech MDM - Alcohol MDM Narrative Medical decision making narrative: Patient evaluated by care team and PHN. Currently a bed search. Differential Diagnosis Differential diagnosis: Likely alcohol dependence Lab Data Result diagrams: 07/29/20 22:46 07/29/20 22:46 Labs: Lab Results 07/29/20 07/29/20 07/29/20 Range/Units 22:36 22:46 22:46 WBC 11.8 H (4.8-10.8) X10*3/uL RBC 5.82 H (4.60-5.80) X10*6/uL Hgb 18.3 H (14.0-18.0) g/dl Hct 52.5 H (42-52) % MCV 90.2 (80-98) fL MCH 31.4 (27.0-33.0) pg MCHC 34.9 (31.0-36.0) g/dl RDW 12.2 (11.0-16.0) % Plt Count 414 H D (160-400) X10*3/uL MPV 9.8 (9.4-12.4) fL Immature Gran % (Auto) 0.5 H (0.0-0.4) % Neut % (Auto) 79.2 H (45-73) % Lymph % (Auto) 16.0 L (20-40) % [place] % (Auto) 3.5 (2-11) % Eos % (Auto) 0.0 (0-4) % Baso % (Auto) 0.8 (0-2) % Lymph # (Auto) 1.9 (1.2-4.9) X10*3/uL [place] # (Auto) 0.4 (0.1-1.2) X10*3/uL Eos # (Auto) 0.0 (0.0-0.4) X10*3/uL Baso # (Auto) 0.1 (0.0-0.2) X10*3/uL Abs Immat Gran (auto) 0.06 H (0.00-0.03) X10*3/uL Absolute Neuts (auto) 9.3 H (2.0-8.3) X10*3/uL Absolute Nucleated RBC 0.000 (0.0-0.012) X10*3/uL Nucleated RBC % (auto) 0.0 (0.0-0.2) /100WBC Sodium 141 (135-145) mmol/L Potassium 5.0 (3.3-5.1) mmol/L Chloride 98 (96-108) mmol/L Carbon Dioxide 17 L (22-29) mmol/L Anion Gap 31 H (12-20) BUN 12 D (9-16) mg/dL Creatinine 0.83 (0.5-1.4) mg/dL Estim Creat Clear Calc 106.5 Estimated GFR > 60 Random Glucose 95 (60-115) mg/dL Calcium 9.6 D (8.4-10.2) mg/dL Total Bilirubin 0.7 (0.0-1.0) mg/dL AST 29 (5-37) U/L ALT 32 (0-40) U/L Alkaline Phosphatase 106 (39-117) U/L Total Protein 8.4 H (6.5-8.0) g/dL Albumin 5.2 H (3.5-5.0) g/dL Urine Opiates Screen Not Detected (Not Detect) Ur Barbiturates Screen Not Detected (Not Detect) Ur Phencyclidine Scrn Not Detected (Not Detect) Ur Amphetamines Screen Not Detected (Not Detect) U Benzodiazepines Scrn Not Detected (Not Detect) Urine Cocaine Screen Not Detected (Not Detect) U Marijuana (THC) Screen Not Detected (Not Detect) Ethyl Alcohol mg/dL 07/29/20 Range/Units 22:46 WBC (4.8-10.8) X10*3/uL RBC (4.60-5.80) X10*6/uL Hgb (14.0-18.0) g/dl Hct (42-52) % MCV (80-98) fL MCH (27.0-33.0) pg MCHC (31.0-36.0) g/dl RDW (11.0-16.0) % Plt Count (160-400) X10*3/uL MPV (9.4-12.4) fL Immature Gran % (Auto) (0.0-0.4) % Neut % (Auto) (45-73) % Lymph % (Auto) (20-40) % [place] % (Auto) (2-11) % Eos % (Auto) (0-4) % Baso % (Auto) (0-2) % Lymph # (Auto) (1.2-4.9) X10*3/uL [place] # (Auto) (0.1-1.2) X10*3/uL Eos # (Auto) (0.0-0.4) X10*3/uL Baso # (Auto) (0.0-0.2) X10*3/uL Abs Immat Gran (auto) (0.00-0.03) X10*3/uL Absolute Neuts (auto) (2.0-8.3) X10*3/uL Absolute Nucleated RBC (0.0-0.012) X10*3/uL Nucleated RBC % (auto) (0.0-0.2) /100WBC Sodium (135-145) mmol/L Potassium (3.3-5.1) mmol/L Chloride (96-108) mmol/L Carbon Dioxide (22-29) mmol/L Anion Gap (12-20) BUN (9-16) mg/dL Creatinine (0.5-1.4) mg/dL Estim Creat Clear Calc Estimated GFR Random Glucose (60-115) mg/dL Calcium (8.4-10.2) mg/dL Total Bilirubin (0.0-1.0) mg/dL AST (5-37) U/L ALT (0-40) U/L Alkaline Phosphatase (39-117) U/L Total Protein (6.5-8.0) g/dL Albumin (3.5-5.0) g/dL Urine Opiates Screen (Not Detect) Ur Barbiturates Screen (Not Detect) Ur Phencyclidine Scrn (Not Detect) Ur Amphetamines Screen (Not Detect) U Benzodiazepines Scrn (Not Detect) Urine Cocaine Screen (Not Detect) U Marijuana (THC) Screen (Not Detect) Ethyl Alcohol 304 H* mg/dL Discharge Plan Discharge Clinical Impression: Alcohol abuse, Post traumatic stress disorder (PTSD) Prescriptions: No Action trazodone 50 mg Tablet 50 mg PO BEDTIME RF: 0 oxcarbazepine 600 mg Tablet 600 mg PO BID RF: 0
[2020-07-29 22:50] LABS: Basophils Absolute Auto 0.1 X10*3/uL (0.0-0.2); Basophils Percent Auto 0.8 % (0-2); Hematocrit 52.5 % (42-52); Hemoglobin 18.3 g/dl (14.0-18.0); Imm Gran Abs Auto 0.06 X10*3/uL (0.00-0.03); Imm Gran Pct Auto 0.5 % (0.0-0.4); Lymphocytes Absolute Auto 1.9 X10*3/uL (1.2-4.9); MANUAL DIFF FLAG NO; Mean Corpuscular HGB Conc 34.9 g/dl (31.0-36.0); Mean Corpuscular Hemoglobin 31.4 pg (27.0-33.0); Mean Corpuscular Volume 90.2 fL (80-98); Mean Platelet Volume 9.8 fL (9.4-12.4); Monocytes Absolute Auto 0.4 X10*3/uL (0.1-1.2); Monocytes Percent Auto 3.5 % (2-11); Neutrophils Absolute Auto 9.3 X10*3/uL (2.0-8.3); Neutrophils Percent Auto 79.2 % (45-73); Platelet Count 414 X10*3/uL (160-400); Red Blood Count 5.82 X10*6/uL (4.60-5.80); Red Cell Distribution Width 12.2 % (11.0-16.0); White Blood Count 11.8 X10*3/uL (4.8-10.8)
[2020-07-29 23:00] LABS: Amphetamine Screen Urine Not Detected (Not Detect); Barbiturates, Urine Not Detected (Not Detect); Benzodiazepines Screen Urine Not Detected (Not Detect); Cannabinoid Screen Urine Not Detected (Not Detect); Cocaine Screen Urine Not Detected (Not Detect); Opiate Screen Urine Not Detected (Not Detect); Phencyclidine Screen Urine Not Detected (Not Detect)
[2020-07-29 23:20] LABS: Ethanol 304 mg/dL
[2020-07-29 23:24] LABS: Alanine Aminotransferase 32 U/L (0-40); Albumin Level 5.2 g/dL (3.5-5.0); Alkaline Phosphatase 106 U/L (39-117); Anion Gap 31 (12-20); Aspartate Amino Transferase 29 U/L (5-37); Bilirubin Total 0.7 mg/dL (0.0-1.0); Blood Urea Nitrogen 12 mg/dL (9-16); Calcium 9.6 mg/dL (8.4-10.2); Carbon Dioxide 17 mmol/L (22-29); Chloride 98 mmol/L (96-108); Creatinine Clr Calc Pharmacy 106.5; Estimated Glomerular Filt Rate > 60; Glucose Random 95 mg/dL (60-115); Sodium 141 mmol/L (135-145); Total Protein 8.4 g/dL (6.5-8.0)
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
[2020-07-30 07:56] VITALS: BP 132/65; PULSE 106; RESP 21; O2SAT 96
[2020-07-30 11:17] LABS: COVID-19 Test Negative (Negative)
--- NOTE | 2020-07-30 11:54 | PC.NURSE ---
Call placed to [facility] spoke to Ximena. Notified of need for crisis evaluation, faxed information fax confirmation vd.
--- NOTE | 2020-07-30 13:09 | MHC.RECOVRN ---
T/w briefly met with pt prior to pt being seen by N. Pt reports alcohol use, 1 pint of liquor every other day since I was 21. Pt reports having completed ATS 4 times. Pt has utilized naltrexone in the past and reports he still has a prescription at home from his PCP. Pt is not interested in restarting the naltrexone until he discusses it with his PCP. Pt reports being very involved with AA, having a sponsor, and attending IOP at least twice. Pt calm and cooperative during discussion. T/w available for further consult if needed.
--- NOTE | 2020-07-30 13:34 | MHC.RECOVSUP ---
Recovery Support note: Patient is a 34 year old [place] speaking male known to this commercial insurance underwriter from previous consultations. Patient presented to [facility] ED intoxicated requesting help for his PTSD. Patient was seen by N this afternoon and reported that he is not interested in services at this time. This commercial insurance underwriter met with patient to confirm that he is not interested in treatment. Patient reports he does not want to go to detox and that he feels safe to discharge home and that he has several supports in place including therapy and an AA sponsor. Provided patient with business card for this commercial insurance underwriter in the event that he changes his mind and would like to go to detox down the road he can reach out to me for support.
== END 2020-07-30 14:39 | disposition home or self-care (01) ==
PROVIDERS: Physician Assistant Medical; Emergency Provider Emergency Medicine Emergency Medical Services
DX: F10.129 Alcohol abuse with intoxication, unspecified (principal); R00.0 Tachycardia, unspecified; Y90.8 Blood alcohol level of 240 mg/100 ml or more; F17.200 Nicotine dependence, unspecified, uncomplicated; Z20.822 Contact with and (suspected) exposure to COVID-19; Z71.6 Tobacco abuse counseling; Z79.899 Other long term (current) drug therapy
CPT/HCPCS: 36415; 80053; 80307; 80320; 85025; 87635; 99285

== ENCOUNTER 2020-10-10 21:28 | Emergency (ER) | payer OTHER, SELFPAY ==
[2020-10-10 21:34] VITALS: BP 125/80; PULSE 115; RESP 20; TEMP 36.3; O2SAT 96; BMI 24.3
[2020-10-10 22:39] LABS: Glucose Urine UA 250 MG/DL (NEG); Leukocyte Esterase Urine NEG (NEG); Nitrite Urine NEG (NEG); Urine Blood NEG (NEG); Urine Ketones NEG (NEG); Urine Protein NEG (NEG-TRACE)
[2020-10-10 22:44] LABS: Appearance Urine CLEAR; Color Urine YELLOW
[2020-10-10 22:55] LABS: Mucus Urine TRACE /LPF; RBC Urine 0 /HPF (0); Squamous Epithelial Cell Urine TRACE /LPF; WBC Urine 0-2 /HPF (0-4)
[2020-10-10 23:07] LABS: Amphetamine Screen Urine Not Detected (Not Detect); Barbiturates, Urine Not Detected (Not Detect); Benzodiazepines Screen Urine Not Detected (Not Detect); Cannabinoid Screen Urine Not Detected (Not Detect); Cocaine Screen Urine Not Detected (Not Detect); Opiate Screen Urine Not Detected (Not Detect); Phencyclidine Screen Urine Not Detected (Not Detect)
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
--- NOTE | 2020-10-11 02:52 | PC.NURSE ---
Patient appears sleeping, woken up POD commotion, patient reported he is not currently withdrawing from ETOH, agreed to notify staff member if goes into withdrawal, patient very calm and cooperative, will continue to monitor.
[2020-10-11 03:18] VITALS: BP 140/81; PULSE 90; RESP 16; TEMP 36.6; O2SAT 96
[2020-10-11 04:05] LABS: Basophils Absolute Auto 0.1 X10*3/uL (0.0-0.2); Basophils Percent Auto 0.9 % (0-2); Eosinophils Absolute Auto 0.4 X10*3/uL (0.0-0.4); Imm Gran Abs Auto 0.01 X10*3/uL (0.00-0.03); Imm Gran Pct Auto 0.1 % (0.0-0.4); MANUAL DIFF FLAG SCAN; Mean Platelet Volume 9.9 fL (9.4-12.4); PLT CLUMP 1; SCAN SMEAR FLAG 1
[2020-10-11 04:07] LABS: Eosinophils Percent Auto 6.4 % (0-4); Hematocrit 44.5 % (42-52); Hemoglobin 15.5 g/dl (14.0-18.0); Mean Corpuscular HGB Conc 34.8 g/dl (31.0-36.0); Monocytes Absolute Auto 0.4 X10*3/uL (0.1-1.2); Monocytes Percent Auto 6.4 % (2-11); Neutrophils Absolute Auto 1.9 X10*3/uL (2.0-8.3); Neutrophils Percent Auto 27.2 % (45-73); Platelet Count 292 X10*3/uL (160-400); Red Cell Distribution Width 12.6 % (11.0-16.0); White Blood Count 6.9 X10*3/uL (4.8-10.8)
[2020-10-11 04:21] LABS: COVID-19 Test Negative (Negative)
[2020-10-11 04:27] LABS: SLIDE REVIEW VERIFIED
[2020-10-11 04:28] LABS: Anion Gap 17 (12-20); Blood Urea Nitrogen 8 mg/dL (9-16); Calcium 8.8 mg/dL (8.4-10.2); Carbon Dioxide 26 mmol/L (22-29); Chloride 104 mmol/L (96-108); Creatinine Clr Calc Pharmacy 173.8; Estimated Glomerular Filt Rate > 60; Ethanol 215 mg/dL; Glucose Random 72 mg/dL (60-115); Sodium 143 mmol/L (135-145)
--- NOTE | 2020-10-11 07:05 | PC.NURSE ---
patient appears to be at rest at present respirations even and unlabored. patient appears in no distress
[2020-10-11 08:48] VITALS: BP 140/81; PULSE 90
[2020-10-11] MEDS: cloNIDine HCL 0.2 MG TABLET PO (08:48)
[2020-10-11 08:57] VITALS: BP 154/82; PULSE 110; RESP 18; TEMP 36.6; O2SAT 96
--- NOTE | 2020-10-11 09:37 | MHC.CARE ---
CARE Team met with Pt who presented to [facility] intoxicated with a BAL of 215. Pt currently denies SI and reports he did not make a suicidal gesture prior to arriving to [facility]. Pt reports his was angry that he started drinking again which prompted her calling EMS. Pt reports problematic alcohol use over the past three years. Pt reports multiple detox interventions with a period of sobriety roughly a couple months. Pt reports previously at [facility], [facility] and [place]. Pt reports he is currently schedule to get Naltroxone through [facility]. Pt is on the waitlist for [facility] for therapy and psychiatry. Pt denies current SI/HI/AH/VH. Pts mental status is unremarkable. Pt has no history of IPLOC admissions, suicide attempts or ideation. Pt declines wanting detox or further intervention at this time. Pt is agreeable to have the recovery team post discharge. Pt is provided with [facility] Crisis information. VM left with Pts who is reported to have called EMS Plan for Pt to be discharged home.
== END 2020-10-11 13:32 | disposition home or self-care (01) ==
PROVIDERS: Emergency Provider Internal Medicine
DX: F10.120 Alcohol abuse with intoxication, uncomplicated (principal); Y90.7 Blood alcohol level of 200-239 mg/100 ml; Z20.822 Contact with and (suspected) exposure to COVID-19
CPT/HCPCS: 36415; 80048; 80307; 81001; 82077; 85025; 87635; 99284; 99285

== ENCOUNTER 2020-12-14 14:48 | Inpatient (IN) | payer OTHER, SELFPAY ==
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
[2020-12-14 14:54] VITALS: BP 138/70; BP 139/85; PULSE 108; PULSE 90; RESP 18; TEMP 36.3; O2SAT 96; O2SAT 97; BMI 19.2
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
[2020-12-14 16:54] VITALS: RESP 16
--- NOTE | 2020-12-14 16:54 | PC.NURSE ---
CHRISTOPHER polanco at [facility]- per pt made si/hi towards her. Pt verbally abusive to staff regarding need to be evaled by crisis.
[2020-12-14 17:17] LABS: MANUAL DIFF FLAG NO
[2020-12-14 17:19] LABS: Basophils Absolute Auto 0.1 X10*3/uL (0.0-0.2); Basophils Percent Auto 1.2 % (0-2); Eosinophils Absolute Auto 0.2 X10*3/uL (0.0-0.4); Eosinophils Percent Auto 2.3 % (0-4); Imm Gran Abs Auto 0.01 X10*3/uL (0.00-0.03); Imm Gran Pct Auto 0.2 % (0.0-0.4); Lymphocytes Absolute Auto 3.5 X10*3/uL (1.2-4.9); Mean Corpuscular HGB Conc 34.7 g/dl (31.0-36.0); Mean Corpuscular Hemoglobin 32.4 pg (27.0-33.0); Mean Corpuscular Volume 93.3 fL (80-98); Monocytes Absolute Auto 0.4 X10*3/uL (0.1-1.2); Monocytes Percent Auto 5.7 % (2-11); Neutrophils Absolute Auto 2.5 X10*3/uL (2.0-8.3); Neutrophils Percent Auto 37.6 % (45-73); Platelet Count 295 X10*3/uL (160-400); Red Blood Count 5.25 X10*6/uL (4.60-5.80); Red Cell Distribution Width 13.8 % (11.0-16.0); White Blood Count 6.6 X10*3/uL (4.8-10.8)
[2020-12-14 17:42] LABS: Ethanol 376 mg/dL
[2020-12-14 17:44] LABS: Alanine Aminotransferase 17 U/L (0-40); Albumin Level 4.5 g/dL (3.5-5.0); Alkaline Phosphatase 73 U/L (39-117); Anion Gap 17 (12-20); Aspartate Amino Transferase 28 U/L (5-37); Bilirubin Direct 0.2 mg/dL (0.0-0.5); Bilirubin Total 0.3 mg/dL (0.0-1.0); Blood Urea Nitrogen 6 mg/dL (9-16); Calcium 8.8 mg/dL (8.4-10.2); Carbon Dioxide 24 mmol/L (22-29); Chloride 111 mmol/L (96-108); Creatinine Clr Calc Pharmacy 130.7; Estimated Glomerular Filt Rate > 60; Glucose Random 108 mg/dL (60-115); Potassium 3.9 mmol/L (3.3-5.1); Sodium 148 mmol/L (135-145); Total Protein 7.1 g/dL (6.5-8.0)
[2020-12-14 18:31] LABS: COVID-19 Test Negative (Negative)
[2020-12-14 21:00] LABS: Amphetamine Screen Urine Not Detected (Not Detect); Barbiturates, Urine Not Detected (Not Detect); Benzodiazepines Screen Urine Not Detected (Not Detect); Cannabinoid Screen Urine Not Detected (Not Detect); Cocaine Screen Urine Not Detected (Not Detect); Fentanyl, urine Not Detected (Not Detect); Opiate Screen Urine Not Detected (Not Detect); Phencyclidine Screen Urine Not Detected (Not Detect)
--- NOTE | 2020-12-14 21:45 | PC.NURSE ---
pt seen sitting at end of the bed attempting to use phone. this nurse asked pt what he needed and pt stated he wanted to leave and would leave AMA if necessary. this nurse informed pt that he is sectioned for previously made SI statements and needs to stay until he can be evaluated by [facility]. per Lulú from care team, [facility]N will not evaluate pt until he is clinically sober. pt aware of plan for [facility] evaluation but still expressing unhappiness with situation. CARROLLP (Mary Joshua NP) aware
[2020-12-14 22:51] VITALS: BP 140/68; PULSE 90; RESP 16; TEMP 37.4; O2SAT 95
[2020-12-14] MEDS: OXcarbazepine 300 MG TABLET 600 MG PO (23:31)
[2020-12-14 23:32] VITALS: BP 140/68; PULSE 90
[2020-12-14] MEDS: cloNIDine HCL 0.2 MG TABLET PO (23:32)
--- NOTE | 2020-12-15 | ECG_ITS ---
Test Reason : PLACEMENT Blood Pressure : / mmHG Vent. Rate : 055 BPM Atrial Rate : 055 BPM P-R Int : 168 ms QRS Dur : 112 ms QT Int : 388 ms P-R-T Axes : 007 108 074 degrees QTc Int : 371 ms Sinus bradycardia Rightward axis Pulmonary disease pattern Abnormal ECG No previous ECGs available Referred By: Soumya Gunter Electronically Signed By:CARMINA CANTOR
[2020-12-15 00:43] VITALS: RESP 16
--- NOTE | 2020-12-15 06:40 | PC.NURSE ---
Patient got transferred from main ED to ED POD at 0245, patient independent of ambulation, behavior calm and quiet, denied SI/HI/AVH, compliant transfer process, [facility] called and spoke with Daisha confirmed receipt of referral, patient will be seen in the morning, patient is currently asymptomatic of ETOH withdrawal, will continue to monitor.
[2020-12-15 08:22] VITALS: BP 142/94; PULSE 78
[2020-12-15] MEDS: cloNIDine HCL 0.2 MG TABLET PO ×2 (08:22→20:41)
[2020-12-15] MEDS: OXcarbazepine 300 MG TABLET 600 MG PO ×2 (08:23→20:43)
[2020-12-15 08:26] VITALS: BP 142/94; PULSE 78; RESP 18; TEMP 36.5; O2SAT 97
--- NOTE | 2020-12-15 10:00 | MHC.RECOVSUP ---
? Reason for consult:Continuity of care o Current location:[facility] o Identified substance use concern: ETOH - Withdrawal - Support ? Intervention: o MAT started or to be started o Community resources provided o Harm reduction discussion ? Plan: o Patient to follow up with [facility] after discharge ? Additional information: PT was on MAT via [facility], PT. to f/u with them. pt. refuses detox, gave him community support.
[2020-12-15 17:54] VITALS: BP 124/70; PULSE 59; RESP 16; TEMP 36.9; O2SAT 99
[2020-12-15 20:41] VITALS: BP 126/80; PULSE 62
--- NOTE | 2020-12-15 21:50 | PC.NURSE ---
Patient currently in his bed, calm and quiet, asymptomatic of ETOH withdrawal, scoring zero on CIWA, compliant with HS PO medication, will continue to monitor.
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
[2020-12-16 08:51] LABS: Alanine Aminotransferase 15 U/L (0-40); Albumin Level 4.2 g/dL (3.5-5.0); Alkaline Phosphatase 66 U/L (39-117); Anion Gap 12 (12-20); Aspartate Amino Transferase 21 U/L (5-37); Bilirubin Total 0.9 mg/dL (0.0-1.0); Blood Urea Nitrogen 7 mg/dL (9-16); Calcium 9.5 mg/dL (8.4-10.2); Carbon Dioxide 29 mmol/L (22-29); Chloride 105 mmol/L (96-108); Estimated Glomerular Filt Rate > 60; Glucose Random 101 mg/dL (60-115); Potassium 4.3 mmol/L (3.3-5.1); Sodium 142 mmol/L (135-145); Total Protein 6.5 g/dL (6.5-8.0)
[2020-12-16] MEDS: Thiamine HCL 100 MG TABLET PO (09:16)
[2020-12-16] MEDS: Pyridoxine HCl (Vitamin B6) 50 MG TABLET PO (09:16)
[2020-12-16] MEDS: cloNIDine HCL 0.2 MG TABLET PO ×2 (09:16→20:11)
[2020-12-16] MEDS: OXcarbazepine 300 MG TABLET 600 MG PO ×2 (09:16→20:12)
[2020-12-16] MEDS: Folic Acid 1 MG TABLET PO (09:16)
[2020-12-16 09:54] LABS: Vitamin B12 438 pg/mL (200-900)
[2020-12-16 16:38] VITALS: BP 112/70; PULSE 66; RESP 18; TEMP 36.4; O2SAT 99
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
[2020-12-16 20:11] VITALS: BP 118/65; PULSE 63
[2020-12-16] MEDS: traZODone HCL 50 MG TABLET PO (21:57)
[2020-12-17 06:00] VITALS: BP 124/59; PULSE 64; RESP 16; TEMP 36.6; O2SAT 99
[2020-12-17 08:44] VITALS: BP 115/65; PULSE 56; RESP 18; TEMP 36.5; O2SAT 99
[2020-12-17 08:46] VITALS: BP 115/65; PULSE 56
[2020-12-17] MEDS: cloNIDine HCL 0.2 MG TABLET PO ×2 (08:46→20:19)
[2020-12-17] MEDS: Folic Acid 1 MG TABLET PO (08:47)
[2020-12-17] MEDS: OXcarbazepine 300 MG TABLET 600 MG PO ×2 (08:47→20:19)
[2020-12-17] MEDS: Pyridoxine HCl (Vitamin B6) 50 MG TABLET PO (08:47)
[2020-12-17] MEDS: Thiamine HCL 100 MG TABLET PO (08:47)
[2020-12-17] MEDS: Nicotine 21 MG PATCH.TD24 TRANSDERMA (08:47)
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
[2020-12-17 18:00] VITALS: BP 151/75; PULSE 80; RESP 16; TEMP 36.7; O2SAT 99
[2020-12-17 20:19] VITALS: BP 151/75; PULSE 82
[2020-12-17] MEDS: traZODone HCL 50 MG TABLET PO (21:55)
[2020-12-18 09:05] VITALS: BP 117/59
[2020-12-18] MEDS: OXcarbazepine 300 MG TABLET 600 MG PO (09:05)
[2020-12-18] MEDS: Folic Acid 1 MG TABLET PO (09:05)
[2020-12-18] MEDS: cloNIDine HCL 0.2 MG TABLET PO (09:05)
[2020-12-18] MEDS: Pyridoxine HCl (Vitamin B6) 50 MG TABLET PO (09:06)
[2020-12-18] MEDS: Nicotine 21 MG PATCH.TD24 TRANSDERMA (09:06)
[2020-12-18] MEDS: Thiamine HCL 100 MG TABLET PO (09:06)
--- NOTE | 2020-12-18 21:00 | P.DS_ITS ---
DS: Providers Provider Date of Service: 12/18/20 Date of admission: 12/15/20 21:46 Date of discharge: 12/18/20 Primary care physician: KONSTANTIN Matthews Admitting clinician: Lata Gordon Attending physician on admission: Luan Bernal Consults: 12/14/20 18:15 Consult to Crisis Stat Reason for consultation: alcohol abuse. suicidal and homicidal towards Has provider been notified: Yes Attending physician on discharge: Luan Bernal Discharging clinician: Silvia Rendon DS: Diagnosis Discharge Diagnosis (1) Depression: Status: Acute (2) Acute post-traumatic stress disorder: Status: Acute (3) Alcohol abuse: Status: Acute (4) Suicidal ideations: Status: Resolved DS: Medications Discharge Medications Home Medications: Previous Rx's Medication Instructions Recorded clonidine HCl 0.2 mg tablet 1 tab PO BID #60 tab 12/18/20 folic acid 1 mg tablet 1 mg PO DAILY #30 tab 12/18/20 naltrexone 50 mg tablet 50 mg PO DAILY #30 tab 12/18/20 oxcarbazepine 600 mg tablet 1 tab PO BID #60 tab 12/18/20 pyridoxine (vitamin B6) 50 mg 50 mg PO DAILY #30 tab 12/18/20 tablet thiamine mononitrate (vit B1) 100 100 mg PO DAILY #30 tab 12/18/20 mg tablet trazodone 50 mg tablet 1 tab PO BEDTIME #30 tab 12/18/20 Mental Status Exam Mental Status Exam Patient Appearance: Appropriate Patient Orientation: Person, Place, Time and Situation Level of Consciousness: Alert Patient Behavior: Appropriate, Talkative, Cooperative and Good Eye Contact Mood Description: Constricted Affect Description: Constricted Patient Cognition Impaired: No Ability to Follow Directions: Good Speech Pattern: Spontaneous Speech Memory Description: Intact Hallucinations: None Delusions: Not Present Thought Process: Goal Oriented Thought Content: positive for Goal Oriented Judgement: Good Data Data Completed and Pending Completed studies during hospitalization [Text1]: 12/14/20 12/14/20 12/14/20 17:09 17:09 17:09 WBC 6.6 RBC 5.25 Hgb 17.0 Hct 49.0 MCV 93.3 MCH 32.4 MCHC 34.7 RDW 13.8 Plt Count 295 MPV 9.0 L Immature Gran % (Auto) 0.2 Neut % (Auto) 37.6 L Lymph % (Auto) 53.0 H Loving % (Auto) 5.7 Eos % (Auto) 2.3 Baso % (Auto) 1.2 Lymph # (Auto) 3.5 Loving # (Auto) 0.4 Eos # (Auto) 0.2 Baso # (Auto) 0.1 Abs Immat Gran (auto) 0.01 Absolute Neuts (auto) 2.5 Absolute Nucleated RBC 0.000 Nucleated RBC % (auto) 0.0 Sodium 148 H Potassium 3.9 Chloride 111 H Carbon Dioxide 24 Anion Gap 17 BUN 6 L Creatinine 0.67 Estim Creat Clear Calc 130.7 Estimated GFR > 60 Random Glucose 108 D Calcium 8.8 Total Bilirubin 0.3 Direct Bilirubin 0.2 AST 28 ALT 17 Alkaline Phosphatase 73 D Total Protein 7.1 Albumin 4.5 Vitamin B12 Folate Urine Opiates Screen Urine Fentanyl Screen Ur Barbiturates Screen Ur Phencyclidine Scrn Ur Amphetamines Screen U Benzodiazepines Scrn Urine Cocaine Screen U Marijuana (THC) Screen Ethyl Alcohol 376 H* COVID-19 ([facility]) COVID-Intrapace 12/14/20 12/14/20 12/16/20 18:11 20:29 08:03 WBC RBC Hgb Hct MCV MCH MCHC RDW Plt Count MPV Immature Gran % (Auto) Neut % (Auto) Lymph % (Auto) Loving % (Auto) Eos % (Auto) Baso % (Auto) Lymph # (Auto) Loving # (Auto) Eos # (Auto) Baso # (Auto) Abs Immat Gran (auto) Absolute Neuts (auto) Absolute Nucleated RBC Nucleated RBC % (auto) Sodium 142 Potassium 4.3 Chloride 105 Carbon Dioxide 29 Anion Gap 12 BUN 7 L Creatinine 0.73 Estim Creat Clear Calc 120.0 Estimated GFR > 60 Random Glucose 101 Calcium 9.5 D Total Bilirubin 0.9 Direct Bilirubin AST 21 ALT 15 Alkaline Phosphatase 66 Total Protein 6.5 Albumin 4.2 Vitamin B12 Folate Urine Opiates Screen Not Detected Urine Fentanyl Screen Not Detected Ur Barbiturates Screen Not Detected Ur Phencyclidine Scrn Not Detected Ur Amphetamines Screen Not Detected U Benzodiazepines Scrn Not Detected Urine Cocaine Screen Not Detected U Marijuana (THC) Screen Not Detected Ethyl Alcohol COVID-19 ([facility]) Negative COVID-19 op5 See Note 12/16/20 08:03 WBC RBC Hgb Hct MCV MCH MCHC RDW Plt Count MPV Immature Gran % (Auto) Neut % (Auto) Lymph % (Auto) Loving % (Auto) Eos % (Auto) Baso % (Auto) Lymph # (Auto) Loving # (Auto) Eos # (Auto) Baso # (Auto) Abs Immat Gran (auto) Absolute Neuts (auto) Absolute Nucleated RBC Nucleated RBC % (auto) Sodium Potassium Chloride Carbon Dioxide Anion Gap BUN Creatinine Estim Creat Clear Calc Estimated GFR Random Glucose Calcium Total Bilirubin Direct Bilirubin AST ALT Alkaline Phosphatase Total Protein Albumin Vitamin B12 438 Folate 8.0 Urine Opiates Screen Urine Fentanyl Screen Ur Barbiturates Screen Ur Phencyclidine Scrn Ur Amphetamines Screen U Benzodiazepines Scrn Urine Cocaine Screen U Marijuana (THC) Screen Ethyl Alcohol COVID-19 ([facility]) COVID-19 Clin Com Imaging Diagnostic Imaging Impressions Face CT 12/14/20 15:00 IMPRESSION: 1. No acute intracranial abnormality. 2. No acute osseous abnormality within the cervical spine. 3. Left greater than right acute essentially nondisplaced x-ray sinus wall fractures. Orbital bony margins intact. Older appearing nasal bone fractures. Head CT 12/14/20 15:00 IMPRESSION: 1. No acute intracranial abnormality. 2. No acute osseous abnormality within the cervical spine. 3. Left greater than right acute essentially nondisplaced x-ray sinus wall fractures. Orbital bony margins intact. Older appearing nasal bone fractures. Cervical Spine CT 12/14/20 15:01 IMPRESSION: 1. No acute intracranial abnormality. 2. No acute osseous abnormality within the cervical spine. 3. Left greater than right acute essentially nondisplaced x-ray sinus wall fractures. Orbital bony margins intact. Older appearing nasal bone fractures. DS: Summary Hospital Course Hospital Course: 35 yo male who was brought to the hospital by ambulance after his called for help. She reported he was making suicidal statements and exhibiting aggressive behaviors with intoxication. Pt has a history of PTSD. He reports no recall of events. What he does recall is awakening from a nap to find paramedics prepared to transport him for assessment. Pt reports intermittent alcohol use, denied daily drinking, attends AA. He reported possible precipitants as a recent move to a new home, beginning a new job, and increased stress as he was attempt ing to balance work responsibilities with settling into the new residence. 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 Pt was not interested in in patient treatment. His behavior was stable on the unit, was contacted by social secretary and she was agreeable to have him return. He allowed aftercare to be scheduled, will return to [place] for Vivitrol, to his termite exterminator therapist and for psychopharmacology follow up. Time spent discussing smoking cessation with patient: 3 to 10 minutes Status at Discharge Cognitive/behavioral status at discharge: non-psychotic, non-suicidal, agreeable to plan of care Functional status at discharge: independent ambulation Overall status at discharge: patient is back to baseline Time Spent with Patient Time attestation: Total time spent providing and/or coordinating discharge services:35 Time spent: Greater than 30 minutes Discharge Plan Discharge Anticipated Discharge Date/Time: 12/18/20 12:00 Patient Disposition: Home, Self-Care Discharge Diagnosis: PTSD Recurrent Major Depression, Severe Alcohol Use Disorder, Severe [facility] [Other] - 12/22/20 12:45 pm (*Appointment will take 45 minutes*) [facility] [Other] - 1 Week (*You have not been referred as this agency as they require a self-referral directly from the client. They have a wait list but you are encouraged to call to get on the list. ) Therapist: [facility] [Other] - 1 Week (Messages were left asking [facility] to reach out to you to schedule next appointment. You are also encouraged to contact [facility] for appointment. ) Neurologist: Dr. Stefano Calvillo ([facility]) [Other] - 01/26/21 3:50 pm (Use main entrance and take elevators to 4th floor) Kell Clement PA [Primary Care Provider] - 1 Week Mell Concepcion MD [Physician] - 12/26/20 3:00 pm (DR. PLASCENCIA WILL BE COVERING. IN OFFICE ) Discharge Medications: New pyridoxine (vitamin B6) 50 mg Tablet 50 mg PO DAILY Qty: 30 RF: 0 folic acid 1 mg Tablet 1 mg PO DAILY Qty: 30 RF: 0 thiamine mononitrate (vit B1) 100 mg Tablet 100 mg PO DAILY Qty: 30 RF: 0 naltrexone 50 mg tablet 50 mg PO DAILY Qty: 30 RF: 1 Continued trazodone 50 mg tablet 1 tab PO BEDTIME Qty: 30 RF: 0 clonidine HCl 0.2 mg tablet 1 tab PO BID Qty: 60 RF: 0 oxcarbazepine 600 mg tablet 1 tab PO BID Qty: 60 RF: 0 Discharge Orders: Discharge Order (Routine); Ordered 12/18/20 Ordered By: Silvia Rendon Diet: advance to usual diet Activity on Discharge: As tolerated Stand Alone Forms: Patient Portal Discharge page Care Plan Goals: Mood Stabilization Sobriety Health Concerns: PTSD Recurrent Major Depression,Severe Alcohol Use Disorder, Severe, Dependence Plan of Treatment: Attend appointments as scheduled Reconnect with your AA community Take medications as directed Assessment: alert, oriented, non-psychotic, non-suicidal, mood wnl, concurs with plan of care. Discharge Date/Time: 12/18/20 13:48
== END 2020-12-18 13:48 | disposition home or self-care (01) | DRG 751 ==
LOC: HO.ED 12-15 21:44 → HO.PM5 12-15 21:56
PROVIDERS: Physician Assistant; Admitting Provider Registered Nurse; Emergency Provider Emergency Medicine; PCP Physician Assistant Medical; Visit Provider Clinical Nurse Specialist Psychiatric/Mental Health, Adult
DX: F33.9 Major depressive disorder, recurrent, unspecified (principal); R45.851 Suicidal ideations; R45.850 Homicidal ideations; F43.11 Post-traumatic stress disorder, acute; F10.229 Alcohol dependence with intoxication, unspecified; F17.210 Nicotine dependence, cigarettes, uncomplicated; Z20.822 Contact with and (suspected) exposure to COVID-19; Z71.6 Tobacco abuse counseling; Y90.8 Blood alcohol level of 240 mg/100 ml or more; Z79.899 Other long term (current) drug therapy
CPT/HCPCS: 36415; 70450; 70486; 72125; 80053; 80307; 82077; 82248; 82607; 82746; 85025; 87635; 93005; 99285

== ENCOUNTER 2020-12-20 03:56 | Emergency (ER) | payer OTHER, SELFPAY ==
[2020-12-20 04:07] VITALS: BP 113/77; BP 116/52; PULSE 74; PULSE 76; RESP 15; TEMP 36.5; O2SAT 98; BMI 20.9
--- NOTE | 2020-12-20 04:13 | PC.NURSE ---
Pt's speech incoherent, arousable to verbal stimuli.
[2020-12-20 04:49] LABS: Glucose, Whole Blood 93 mg/dL (60-115)
[2020-12-20 06:00] VITALS: BP 114/76; PULSE 70; RESP 15; O2SAT 98
[2020-12-20 07:00] VITALS: BP 114/72; PULSE 73; RESP 12; O2SAT 99
--- NOTE | 2020-12-20 07:11 | ED_ITS ---
HPI - Alcohol General Chief Complaint: ETOH/Substance Use Stated Complaint: ETOH Time Seen by Provider: 12/20/20 04:23 History of Present Illness HPI narrative: This is a 40 years with history of alcohol abuse presented intoxicated with alcohol MD complaint: alcohol intoxication Last drink: Just prior to admission Chronic alcohol use: Yes Previous visits for alcohol intoxication: Yes Recent trauma: No Associated symptoms: denies other symptoms Related Data Previous Rx's Medication Instructions Recorded clonidine HCl 0.2 mg tablet 1 tab PO BID #60 tab 12/18/20 folic acid 1 mg tablet 1 mg PO DAILY #30 tab 12/18/20 naltrexone 50 mg tablet 50 mg PO DAILY #30 tab 12/18/20 oxcarbazepine 600 mg tablet 1 tab PO BID #60 tab 12/18/20 pyridoxine (vitamin B6) 50 mg 50 mg PO DAILY #30 tab 12/18/20 tablet thiamine mononitrate (vit B1) 100 100 mg PO DAILY #30 tab 12/18/20 mg tablet trazodone 50 mg tablet 1 tab PO BEDTIME #30 tab 12/18/20 Allergies Allergy/AdvReac Type Severity Reaction Status Date / Time No Known Allergies Allergy Unverified 01/10/20 19:47 [No Known Allergies*] Review of Systems Review of Systems: Yes all other systems are reviewed and are negative Constitutional: Constitutional: Reports no additional constitutional complaints Cardiovascular: Cardiovascular: Reports no additional cardiovascular complaints Integumentary/Breasts: Skin/Breast: Reports system reviewed and no additional complaints, except as docu PMFSH Past Medical History Medical History Alcohol abuse Anxiety Depression PTSD (post-traumatic stress disorder) Social History Social History Household Members: Spouse Housing: Apartment Do you presently have visiting nurse or other home services: No Unable to assess alcohol history related to: Unknown Alcohol intake: current Alcohol intake frequency: 3 or more drinks per day Alcohol type: wine and hard liquor Patient Tobacco Use Status: Current everyday Tobacco user Tobacco use type: Cigarette Cigarette Packs Per Day: 0.5 Cigarettes Per Day: 10.0 Years Smoked: since age 16 e-Cigarette/Vaping Use: Never Used Second Hand Smoke Exposure: No Substance Use Type: Other Advance Directives: No Advance Directives Information Provided: No service: No Sexual orientation: Straight/Heterosexual Physical Exam Vital Signs: Vital Signs: Last Vital Signs Temp 97.7 F 12/20/20 04:07 Pulse 73 12/20/20 07:00 Resp 12 12/20/20 07:00 BP 114/72 12/20/20 07:00 Pulse Ox 99 12/20/20 07:00 Body Mass Index 20.9 Const: Other: The patient is intoxicated with alcohol but is easily arousable General: no acute distress Nutritional Appearance: average body habitus Orientation/consciousness: oriented to person and oriented to place HENMT: Head: Yes normal to inspection, Yes No palpable skull fracture present, Yes normocephalic and Yes atraumatic General nose exam: Normal external nose present Face and sinus: Yes normal facial exam Mouth: Normal oral and palatal mucosa present Neck: Neck: Yes normal visual inspection, Yes full ROM and Yes no lymphadenopathy Thyroid: Thyroid normal Chest: Chest palpation & inspection: normal inspection of the chest and normal palpation of entire chest wall Resp: Effort & Inspection: able to speak in complete sentences Auscultation: clear to auscultation bilaterally Cardio: Jugular venous distension: no JVD Rate: regular rate GI: Inspection: Yes normal to inspection Palpation (GI): Soft to palpation, not firm and nontender Skin: General skin exam: no rashes or lesions noted, elasticity normal and turgor normal Wounds: no wounds Neuro: General: oriented to person and oriented to place Course Reevaluation(s) Reevaluation #1: Patient is now awake and alert his gait is stable, he refuses detox he is not SI no HI he wants to be released MDM - Alcohol Lab Data Result diagrams: 12/20/20 07:33 12/20/20 07:33 Labs: Lab Results 12/20/20 12/20/20 12/20/20 Range/Units 04:36 07:25 07:32 WBC (4.8-10.8) X10*3/uL RBC (4.60-5.80) X10*6/uL Hgb (14.0-18.0) g/dl Hct (42-52) % MCV (80-98) fL MCH (27.0-33.0) pg MCHC (31.0-36.0) g/dl RDW (11.0-16.0) % Plt Count (160-400) X10*3/uL MPV (9.4-12.4) fL Immature Gran % (Auto) (0.0-0.4) % Neut % (Auto) (45-73) % Lymph % (Auto) (20-40) % Pickett % (Auto) (2-11) % Eos % (Auto) (0-4) % Baso % (Auto) (0-2) % Lymph # (Auto) (1.2-4.9) X10*3/uL Pickett # (Auto) (0.1-1.2) X10*3/uL Eos # (Auto) (0.0-0.4) X10*3/uL Baso # (Auto) (0.0-0.2) X10*3/uL Abs Immat Gran (auto) (0.00-0.03) X10*3/uL Absolute Neuts (auto) (2.0-8.3) X10*3/uL Absolute Nucleated RBC (0.0-0.012) X10*3/uL Nucleated RBC % (auto) (0.0-0.2) /100WBC Sodium (135-145) mmol/L Potassium (3.3-5.1) mmol/L Chloride (96-108) mmol/L Carbon Dioxide (22-29) mmol/L Anion Gap (12-20) BUN (9-16) mg/dL Creatinine (0.5-1.4) mg/dL Estim Creat Clear Calc Estimated GFR POC Glucose 93 (60-115) mg/dL Random Glucose (60-115) mg/dL Calcium (8.4-10.2) mg/dL Magnesium (1.6-2.6) mg/dL Total Bilirubin (0.0-1.0) mg/dL AST (5-37) U/L ALT (0-40) U/L Alkaline Phosphatase (39-117) U/L Total Protein (6.5-8.0) g/dL Albumin (3.5-5.0) g/dL Urine Opiates Screen Not Detected (Not Detect) Urine Fentanyl Screen Not Detected (Not Detect) Ur Barbiturates Screen Not Detected (Not Detect) Ur Phencyclidine Scrn Not Detected (Not Detect) Ur Amphetamines Screen Not Detected (Not Detect) U Benzodiazepines Scrn Not Detected (Not Detect) Urine Cocaine Screen Not Detected (Not Detect) U Marijuana (THC) Screen Not Detected (Not Detect) Ethyl Alcohol 367 H* mg/dL 12/20/20 12/20/20 Range/Units 07:33 07:33 WBC 6.5 (4.8-10.8) X10*3/uL RBC 5.75 (4.60-5.80) X10*6/uL Hgb 18.3 H (14.0-18.0) g/dl Hct 54.1 H (42-52) % MCV 94.1 (80-98) fL MCH 31.8 (27.0-33.0) pg MCHC 33.8 (31.0-36.0) g/dl RDW 13.3 (11.0-16.0) % Plt Count 366 (160-400) X10*3/uL MPV 9.3 L (9.4-12.4) fL Immature Gran % (Auto) 0.3 (0.0-0.4) % Neut % (Auto) 32.8 L (45-73) % Lymph % (Auto) 56.4 H (20-40) % Pickett % (Auto) 6.3 (2-11) % Eos % (Auto) 2.8 (0-4) % Baso % (Auto) 1.4 (0-2) % Lymph # (Auto) 3.7 (1.2-4.9) X10*3/uL Pickett # (Auto) 0.4 (0.1-1.2) X10*3/uL Eos # (Auto) 0.2 (0.0-0.4) X10*3/uL Baso # (Auto) 0.1 (0.0-0.2) X10*3/uL Abs Immat Gran (auto) 0.02 (0.00-0.03) X10*3/uL Absolute Neuts (auto) 2.1 (2.0-8.3) X10*3/uL Absolute Nucleated RBC 0.000 (0.0-0.012) X10*3/uL Nucleated RBC % (auto) 0.0 (0.0-0.2) /100WBC Sodium 145 (135-145) mmol/L Potassium 4.8 (3.3-5.1) mmol/L Chloride 106 (96-108) mmol/L Carbon Dioxide 29 (22-29) mmol/L Anion Gap 15 (12-20) BUN 5 L (9-16) mg/dL Creatinine 0.80 (0.5-1.4) mg/dL Estim Creat Clear Calc 126.3 Estimated GFR > 60 POC Glucose (60-115) mg/dL Random Glucose 91 (60-115) mg/dL Calcium 10.0 (8.4-10.2) mg/dL Magnesium 2.4 (1.6-2.6) mg/dL Total Bilirubin 0.5 (0.0-1.0) mg/dL AST 30 D (5-37) U/L ALT 25 (0-40) U/L Alkaline Phosphatase 82 D (39-117) U/L Total Protein 8.2 H D (6.5-8.0) g/dL Albumin 5.1 H D (3.5-5.0) g/dL Urine Opiates Screen (Not Detect) Urine Fentanyl Screen (Not Detect) Ur Barbiturates Screen (Not Detect) Ur Phencyclidine Scrn (Not Detect) Ur Amphetamines Screen (Not Detect) U Benzodiazepines Scrn (Not Detect) Urine Cocaine Screen (Not Detect) U Marijuana (THC) Screen (Not Detect) Ethyl Alcohol mg/dL Discharge Plan Discharge Clinical Impression: Alcoholic intoxication Patient Disposition: Home, Self-Care Instructions: Alcohol Intoxication (ED) Additional Instructions: Please follow-up with your primary care physician, consider detox, return if you worse any concern Prescriptions: No Action pyridoxine (vitamin B6) 50 mg Tablet 50 mg PO DAILY Qty: 30 RF: 0 folic acid 1 mg Tablet 1 mg PO DAILY Qty: 30 RF: 0 thiamine mononitrate (vit B1) 100 mg Tablet 100 mg PO DAILY Qty: 30 RF: 0 naltrexone 50 mg tablet 50 mg PO DAILY Qty: 30 RF: 1 trazodone 50 mg tablet 1 tab PO BEDTIME Qty: 30 RF: 0 clonidine HCl 0.2 mg tablet 1 tab PO BID Qty: 60 RF: 0 oxcarbazepine 600 mg tablet 1 tab PO BID Qty: 60 RF: 0 Referrals: Physician,Unknown [Primary Care Provider] - 2 days Interventions: ED Discharge Assessment Last Done: 12/20/20 12:42 Discharge Date/Time: 12/20/20 12:53
[2020-12-20 07:39] LABS: MANUAL DIFF FLAG NO
[2020-12-20 07:42] LABS: Basophils Absolute Auto 0.1 X10*3/uL (0.0-0.2); Basophils Percent Auto 1.4 % (0-2); Eosinophils Absolute Auto 0.2 X10*3/uL (0.0-0.4); Eosinophils Percent Auto 2.8 % (0-4); Hematocrit 54.1 % (42-52); Hemoglobin 18.3 g/dl (14.0-18.0); Imm Gran Abs Auto 0.02 X10*3/uL (0.00-0.03); Imm Gran Pct Auto 0.3 % (0.0-0.4); Lymphocytes Absolute Auto 3.7 X10*3/uL (1.2-4.9); Lymphocytes Percent Auto 56.4 % (20-40); Mean Corpuscular HGB Conc 33.8 g/dl (31.0-36.0); Mean Corpuscular Hemoglobin 31.8 pg (27.0-33.0); Mean Corpuscular Volume 94.1 fL (80-98); Mean Platelet Volume 9.3 fL (9.4-12.4); Monocytes Absolute Auto 0.4 X10*3/uL (0.1-1.2); Monocytes Percent Auto 6.3 % (2-11); Neutrophils Absolute Auto 2.1 X10*3/uL (2.0-8.3); Neutrophils Percent Auto 32.8 % (45-73); Platelet Count 366 X10*3/uL (160-400); Red Blood Count 5.75 X10*6/uL (4.60-5.80); Red Cell Distribution Width 13.3 % (11.0-16.0); White Blood Count 6.5 X10*3/uL (4.8-10.8)
--- NOTE | 2020-12-20 08:04 | PC.NURSE ---
Pt ambulated to bathroom with PCT. Pt now back to bed sleeping at this time.
[2020-12-20 08:05] LABS: Ethanol 367 mg/dL
[2020-12-20 08:08] LABS: Alanine Aminotransferase 25 U/L (0-40); Albumin Level 5.1 g/dL (3.5-5.0); Alkaline Phosphatase 82 U/L (39-117); Anion Gap 15 (12-20); Aspartate Amino Transferase 30 U/L (5-37); Bilirubin Total 0.5 mg/dL (0.0-1.0); Blood Urea Nitrogen 5 mg/dL (9-16); Carbon Dioxide 29 mmol/L (22-29); Chloride 106 mmol/L (96-108); Creatinine Clr Calc Pharmacy 126.3; Estimated Glomerular Filt Rate > 60; Glucose Random 91 mg/dL (60-115); Magnesium 2.4 mg/dL (1.6-2.6); Potassium 4.8 mmol/L (3.3-5.1); Sodium 145 mmol/L (135-145); Total Protein 8.2 g/dL (6.5-8.0)
[2020-12-20 08:09] LABS: Amphetamine Screen Urine Not Detected (Not Detect); Barbiturates, Urine Not Detected (Not Detect); Benzodiazepines Screen Urine Not Detected (Not Detect); Cannabinoid Screen Urine Not Detected (Not Detect); Cocaine Screen Urine Not Detected (Not Detect); Fentanyl, urine Not Detected (Not Detect); Opiate Screen Urine Not Detected (Not Detect); Phencyclidine Screen Urine Not Detected (Not Detect)
--- NOTE | 2020-12-20 12:39 | PC.NURSE ---
Pt ambulated to bathroom with a steady gait. Plan is for discharge. working on this at this time. Pt is calm and cooperative.
--- NOTE | 2020-12-20 12:53 | PC.NURSE ---
Pt called for cab self pay.
== END 2020-12-20 12:53 | disposition home or self-care (01) ==
PROVIDERS: Emergency Provider Emergency Medicine
DX: F10.120 Alcohol abuse with intoxication, uncomplicated (principal); Y90.8 Blood alcohol level of 240 mg/100 ml or more; F17.210 Nicotine dependence, cigarettes, uncomplicated
CPT/HCPCS: 36415; 80053; 80307; 82077; 82947; 83735; 85025; 99284

== ENCOUNTER 2021-01-17 20:41 | Emergency (ER) | payer OTHER, SELFPAY ==
[2021-01-17 20:56] VITALS: BP 125/78; PULSE 102; RESP 18; TEMP 36.7; O2SAT 97; BMI 23.5
[2021-01-17 21:44] LABS: COVID-19 Test Negative (Negative); IDNOW Serial# 08D9AD1C
--- NOTE | 2021-01-17 21:51 | ED.PSYCH ---
HPI - Psych General Chief Complaint: Psychiatric Symptoms Stated Complaint: crisis/etoh Time Seen by Provider: 01/17/21 21:43 Source: patient and old records reviewed History of Present Illness HPI Narrative: Patient with a history of alcohol use disorder presents after apparent suicidal statements at home. The patient himself denies this. He states he does not want to be anymore and only reason he drank tonight was because of his . He recently went through detox for alcohol in November. He states he does not have an alcohol problem. He denies physical complaint. Related Data Home Medications Medication Instructions Recorded Confirmed clonidine HCl 0.2 mg tablet 1 tab PO BID 01/18/21 01/18/21 folic acid 1 mg tablet 1 tab PO DAILY 01/18/21 01/18/21 oxcarbazepine 600 mg tablet 1 tab PO BID 01/18/21 01/18/21 thiamine HCl (vitamin B1) 100 mg 1 tab PO DAILY 01/18/21 01/18/21 tablet trazodone 50 mg tablet 50 mg PO BEDTIME 01/18/21 01/18/21 Previous Rx's Medication Instructions Recorded clonidine HCl 0.2 mg tablet 1 tab PO BID #60 tab 12/18/20 folic acid 1 mg tablet 1 mg PO DAILY #30 tab 12/18/20 naltrexone 50 mg tablet 50 mg PO DAILY #30 tab 12/18/20 oxcarbazepine 600 mg tablet 1 tab PO BID #60 tab 12/18/20 pyridoxine (vitamin B6) 50 mg 50 mg PO DAILY #30 tab 12/18/20 tablet thiamine mononitrate (vit B1) 100 100 mg PO DAILY #30 tab 12/18/20 mg tablet trazodone 50 mg tablet 1 tab PO BEDTIME #30 tab 12/18/20 Allergies Allergy/AdvReac Type Severity Reaction Status Date / Time No Known Allergies Allergy Unverified 01/10/20 19:47 [No Known Allergies*] Review of Systems Constitutional: Comments: No fevers or chills Cardiovascular: Comments: No chest pain Respiratory: Comments: No dyspnea Gastrointestinal: Comments: No nausea vomiting diarrhea or constipation Psychiatric: Comments: Patient denies suicidality at the moment PMFSH Past Medical History Medical History Alcohol abuse Anxiety Depression PTSD (post-traumatic stress disorder) Social History Social History Household Members: Spouse Housing: Apartment Do you presently have visiting nurse or other home services: No Unable to assess alcohol history related to: Unknown Alcohol intake: current Alcohol intake frequency: 3 or more drinks per day Alcohol type: wine and hard liquor Patient Tobacco Use Status: Current everyday Tobacco user Tobacco use type: Cigarette Cigarette Packs Per Day: 0.5 Cigarettes Per Day: 10.0 Years Smoked: since age 16 e-Cigarette/Vaping Use: Never Used Second Hand Smoke Exposure: No Substance Use Type: Other Advance Directives: No Advance Directives Information Provided: Yes service: No Sexual orientation: Straight/Heterosexual Physical Exam Vital Signs: Vital Signs: Last Vital Signs Temp 99.0 F 01/18/21 09:48 Pulse 89 01/18/21 09:48 Resp 14 01/18/21 09:48 BP 158/115 H 01/18/21 09:48 Pulse Ox 97 01/18/21 09:48 Body Mass Index 23.5 Const: Other: Patient is awake and alert. Speech somewhat slurred consistent with alcohol intoxication. HENMT: Other: ETOH type halitosis Resp: Other: No respiratory distress Skin: Other: Warm pink and dry Neuro: Other: Nonfocal Psych: Other: Patient is somewhat agitated. He denies suicidal ideation Course Course Course Narrative: Alcohol intoxication Possible depression and suicidal ideation Alcohol use disorder Substance use disorder PHN consult MDM - Psych Lab Data Labs: Lab Results 01/17/21 01/17/21 01/17/21 Range/Units 21:11 21:41 22:35 Urine Opiates Screen Not Detected (Not Detect) Urine Fentanyl Screen Not Detected (Not Detect) Ur Barbiturates Screen Not Detected (Not Detect) Ur Phencyclidine Scrn Not Detected (Not Detect) Ur Amphetamines Screen Not Detected (Not Detect) U Benzodiazepines Scrn Not Detected (Not Detect) Urine Cocaine Screen Not Detected (Not Detect) U Marijuana (THC) Screen Not Detected (Not Detect) Ethyl Alcohol 406 H* mg/dL COVID-19 ([facility]) Negative (Negative) COVID-19 Clin Com See Note Discharge Plan Discharge Clinical Impression: Alcohol abuse Patient Disposition: Home, Self-Care Instructions: Alcohol Use Disorder (ED) Additional Instructions: Return to the ED for any suicidal/homicidal ideation, hallucinatinos, physical complaints, or any other concerning symptoms. Prescriptions: No Action pyridoxine (vitamin B6) 50 mg Tablet 50 mg PO DAILY Qty: 30 RF: 0 folic acid 1 mg Tablet 1 mg PO DAILY Qty: 30 RF: 0 thiamine mononitrate (vit B1) 100 mg Tablet 100 mg PO DAILY Qty: 30 RF: 0 naltrexone 50 mg tablet 50 mg PO DAILY Qty: 30 RF: 1 trazodone 50 mg tablet 1 tab PO BEDTIME Qty: 30 RF: 0 clonidine HCl 0.2 mg tablet 1 tab PO BID Qty: 60 RF: 0 oxcarbazepine 600 mg tablet 1 tab PO BID Qty: 60 RF: 0 trazodone 50 mg tablet 50 mg PO BEDTIME RF: 0 thiamine HCl (vitamin B1) 100 mg tablet 1 tab PO DAILY RF: 0 clonidine HCl 0.2 mg tablet 1 tab PO BID RF: 0 oxcarbazepine 600 mg tablet 1 tab PO BID RF: 0 folic acid 1 mg tablet 1 tab PO DAILY RF: 0 Interventions: ED Discharge Assessment Last Done: 01/18/21 11:56 Discharge Date/Time: 01/18/21 11:58 Print Language: Georgian
[2021-01-17 22:15] LABS: Amphetamine Screen Urine Not Detected (Not Detect); Barbiturates, Urine Not Detected (Not Detect); Benzodiazepines Screen Urine Not Detected (Not Detect); Cannabinoid Screen Urine Not Detected (Not Detect); Cocaine Screen Urine Not Detected (Not Detect); Fentanyl, urine Not Detected (Not Detect); Opiate Screen Urine Not Detected (Not Detect); Phencyclidine Screen Urine Not Detected (Not Detect)
[2021-01-17 22:58] LABS: Ethanol 406 mg/dL
[2021-01-18 02:55] VITALS: BP 114/70; PULSE 70; RESP 16; TEMP 36.8; O2SAT 98
--- NOTE | 2021-01-18 05:29 | PC.NURSE ---
Patient slept through the night, no distress observed/reported, behavior irritable at the time of arrival but later became calm and quiet, N referral completed/confirmed, patient will be seen in the morning, patient will be clinically sober around 10 am, will continue to monitor.
--- NOTE | 2021-01-18 07:04 | PC.NURSE ---
patient remains asleep at present, respirations are even and unlabored, patient appears in no distress.
[2021-01-18 09:48] VITALS: BP 158/115; PULSE 89; RESP 14; TEMP 37.2; O2SAT 97
--- NOTE | 2021-01-18 11:48 | ED_ITS ---
HPI - Psych General Chief Complaint: Psychiatric Symptoms Stated Complaint: crisis/etoh Time Seen by Provider: 01/17/21 21:43 Source: patient and old records reviewed Related Data Home Medications Medication Instructions Recorded Confirmed clonidine HCl 0.2 mg tablet 1 tab PO BID 01/18/21 01/18/21 folic acid 1 mg tablet 1 tab PO DAILY 01/18/21 01/18/21 oxcarbazepine 600 mg tablet 1 tab PO BID 01/18/21 01/18/21 thiamine HCl (vitamin B1) 100 mg 1 tab PO DAILY 01/18/21 01/18/21 tablet trazodone 50 mg tablet 50 mg PO BEDTIME 01/18/21 01/18/21 Previous Rx's Medication Instructions Recorded clonidine HCl 0.2 mg tablet 1 tab PO BID #60 tab 12/18/20 folic acid 1 mg tablet 1 mg PO DAILY #30 tab 12/18/20 naltrexone 50 mg tablet 50 mg PO DAILY #30 tab 12/18/20 oxcarbazepine 600 mg tablet 1 tab PO BID #60 tab 12/18/20 pyridoxine (vitamin B6) 50 mg 50 mg PO DAILY #30 tab 12/18/20 tablet thiamine mononitrate (vit B1) 100 100 mg PO DAILY #30 tab 12/18/20 mg tablet trazodone 50 mg tablet 1 tab PO BEDTIME #30 tab 12/18/20 Allergies Allergy/AdvReac Type Severity Reaction Status Date / Time No Known Allergies Allergy Unverified 01/10/20 19:47 [No Known Allergies*] [facility] Past Medical History Medical History Alcohol abuse Anxiety Depression PTSD (post-traumatic stress disorder) Social History Social History Household Members: Spouse Housing: Apartment Do you presently have visiting nurse or other home services: No Unable to assess alcohol history related to: Unknown Alcohol intake: current Alcohol intake frequency: 3 or more drinks per day Alcohol type: wine and hard liquor Patient Tobacco Use Status: Current everyday Tobacco user Tobacco use type: Cigarette Cigarette Packs Per Day: 0.5 Cigarettes Per Day: 10.0 Years Smoked: since age 16 e-Cigarette/Vaping Use: Never Used Second Hand Smoke Exposure: No Substance Use Type: Other Advance Directives: No Advance Directives Information Provided: Yes service: No Sexual orientation: Straight/Heterosexual Physical Exam Vital Signs: Vital Signs: Last Vital Signs Temp 99.0 F 01/18/21 09:48 Pulse 89 01/18/21 09:48 Resp 14 01/18/21 09:48 BP 158/115 H 01/18/21 09:48 Pulse Ox 97 01/18/21 09:48 Body Mass Index 23.5 Course Reevaluation(s) Reevaluation #1: Physician observation continued. Patient is not in any distress. patient seen by N and cleared for discharge. Patient is not suicidal or homicidal. 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 Patient diagnosis is Alchol abuse. Patient seen by Dr. Callaway initially yesterday, but did not write note. Time: 11:52 MDM - Psych Lab Data Labs: Lab Results 01/17/21 01/17/21 01/17/21 Range/Units 21:11 21:41 22:35 Urine Opiates Screen Not Detected (Not Detect) Urine Fentanyl Screen Not Detected (Not Detect) Ur Barbiturates Screen Not Detected (Not Detect) Ur Phencyclidine Scrn Not Detected (Not Detect) Ur Amphetamines Screen Not Detected (Not Detect) U Benzodiazepines Scrn Not Detected (Not Detect) Urine Cocaine Screen Not Detected (Not Detect) U Marijuana (THC) Screen Not Detected (Not Detect) Ethyl Alcohol 406 H* mg/dL COVID-19 ([facility]) Negative (Negative) COVID-19 Clin Com See Note Discharge Plan Discharge Clinical Impression: Alcohol abuse Patient Disposition: Home, Self-Care Additional Instructions: Return to the ED for any suicidal/homicidal ideation, hallucinatinos, physical complaints, or any other concerning symptoms. Prescriptions: No Action pyridoxine (vitamin B6) 50 mg Tablet 50 mg PO DAILY Qty: 30 RF: 0 folic acid 1 mg Tablet 1 mg PO DAILY Qty: 30 RF: 0 thiamine mononitrate (vit B1) 100 mg Tablet 100 mg PO DAILY Qty: 30 RF: 0 naltrexone 50 mg tablet 50 mg PO DAILY Qty: 30 RF: 1 trazodone 50 mg tablet 1 tab PO BEDTIME Qty: 30 RF: 0 clonidine HCl 0.2 mg tablet 1 tab PO BID Qty: 60 RF: 0 oxcarbazepine 600 mg tablet 1 tab PO BID Qty: 60 RF: 0 trazodone 50 mg tablet 50 mg PO BEDTIME RF: 0 thiamine HCl (vitamin B1) 100 mg tablet 1 tab PO DAILY RF: 0 clonidine HCl 0.2 mg tablet 1 tab PO BID RF: 0 oxcarbazepine 600 mg tablet 1 tab PO BID RF: 0 folic acid 1 mg tablet 1 tab PO DAILY RF: 0 Print Language: Moroccan
== END 2021-01-18 11:58 | disposition home or self-care (01) ==
PROVIDERS: Internal Medicine; Emergency Provider Emergency Medicine
DX: F10.129 Alcohol abuse with intoxication, unspecified (principal); Y90.8 Blood alcohol level of 240 mg/100 ml or more; Z20.822 Contact with and (suspected) exposure to COVID-19; F17.210 Nicotine dependence, cigarettes, uncomplicated; Z71.6 Tobacco abuse counseling; Z79.899 Other long term (current) drug therapy; Z71.41 Alcohol abuse counseling and surveillance of alcoholic
CPT/HCPCS: 36415; 80307; 82077; 87635; 99283; 99285

== ENCOUNTER 2021-06-21 19:26 | Emergency (ER) | payer OTHER, SELFPAY ==
--- NOTE | 2021-06-21 08:10 | ECG_ITS ---
Test Reason : ams/etoh Blood Pressure : / mmHG Vent. Rate : 084 BPM Atrial Rate : 084 BPM P-R Int : 196 ms QRS Dur : 102 ms QT Int : 352 ms P-R-T Axes : 067 120 065 degrees QTc Int : 415 ms Normal sinus rhythm Left posterior fascicular block Abnormal ECG When compared with ECG of 15-DEC-2020 21:53, Vent. rate has increased BY 29 BPM Referred By: Mando Leary Electronically Signed By:Eric Richards
[2021-06-21 19:42] VITALS: BP 112/64; BP 129/57; PULSE 100; PULSE 105; RESP 15; TEMP 36; O2SAT 96; O2SAT 98; BMI 20.9
[2021-06-21 19:50] VITALS: PULSE 100
[2021-06-21] MEDS: 0.9 % Sodium Chloride 1,000 ML 999 ML IV ×2 (20:07→21:51)
[2021-06-21 20:11] LABS: Basophils Absolute Auto 0.1 X10*3/uL (0.0-0.2); Basophils Percent Auto 1.1 % (0-2); Eosinophils Absolute Auto 0.2 X10*3/uL (0.0-0.4); Eosinophils Percent Auto 3.1 % (0-4); Hematocrit 44.5 % (42.0-52.0); Hemoglobin 15.5 g/dl (14.0-18.0); Imm Gran Abs Auto 0.01 X10*3/uL (0.00-0.03); Imm Gran Pct Auto 0.2 % (0.0-0.4); Lymphocytes Absolute Auto 2.1 X10*3/uL (1.2-4.9); Lymphocytes Percent Auto 39.1 % (20-40); MANUAL DIFF FLAG NO; Mean Corpuscular HGB Conc 34.8 g/dl (31.0-36.0); Mean Corpuscular Hemoglobin 31.5 pg (27.0-33.0); Mean Corpuscular Volume 90.4 fL (80.0-98.0); Mean Platelet Volume 9.1 fL (9.4-12.4); Monocytes Absolute Auto 0.4 X10*3/uL (0.1-1.2); Monocytes Percent Auto 7.6 % (2-11); Neutrophils Absolute Auto 2.6 x10*3/uL (2.0-8.3); Neutrophils Percent Auto 48.9 % (45-73); Platelet Count 242 X10*3/uL (160-400); Red Blood Count 4.92 X10*6/uL (4.60-5.80); Red Cell Distribution Width 13.1 % (11.0-16.0); White Blood Count 5.4 X10*3/uL (4.8-10.8)
--- NOTE | 2021-06-21 20:15 | ED.ALCOHOL ---
HPI - Alcohol General Chief Complaint: ETOH/Substance Use Stated Complaint: ETOH Time Seen by Provider: 06/21/21 19:53 Source: patient Mode of arrival: ambulatory Limitations: no limitations History of Present Illness HPI narrative: Patient alcoholic had lot of 100% proof vodka tonight according to physician family member and acting strangely patient was slurring words and had smell of alcohol. Related Data Home Medications Medication Instructions Recorded Confirmed oxcarbazepine 600 mg tablet 1 tab PO BID 01/18/21 06/21/21 trazodone 50 mg tablet 50 mg PO BEDTIME 01/18/21 06/21/21 Previous Rx's Medication Instructions Recorded clonidine HCl 0.2 mg tablet 1 tab PO BID #60 tab 12/18/20 folic acid 1 mg tablet 1 mg PO DAILY #30 tab 12/18/20 naltrexone 50 mg tablet 50 mg PO DAILY #30 tab 12/18/20 pyridoxine (vitamin B6) 50 mg 50 mg PO DAILY #30 tab 12/18/20 tablet thiamine mononitrate (vit B1) 100 100 mg PO DAILY #30 tab 12/18/20 mg tablet Allergies Allergy/AdvReac Type Severity Reaction Status Date / Time No Known Allergies Allergy Unverified 01/10/20 19:47 [No Known Allergies*] Review of Systems Review of Systems: Yes all other systems are reviewed and are negative PMFSH Past Medical History Medical History Alcohol abuse Anxiety Depression PTSD (post-traumatic stress disorder) Social History Social History Household Members: Spouse Housing: Apartment Do you presently have visiting nurse or other home services: No Unable to assess alcohol history related to: Unknown Alcohol intake: current Alcohol intake frequency: 3 or more drinks per day Alcohol type: hard liquor Patient Tobacco Use Status: Tobacco use Unknown Tobacco use type: Cigarette Cigarette Packs Per Day: 0.5 Cigarettes Per Day: 10.0 Years Smoked: since age 16 e-Cigarette/Vaping Use: Never Used Second Hand Smoke Exposure: No Use of substances other than those prescribed or required for medical reasons: No Substance Use Type: Other Advance Directives: No Advance Directives Information Provided: No service: No Sexual orientation: Straight/Heterosexual Physical Exam ED Vital Signs: Vital Signs - 24 hr 06/21/21 19:42 06/21/21 21:52 Temperature 96.8 F Pulse Rate 100 83 Respiratory Rate 15 12 Blood Pressure 129/57 L 120/50 L Pulse Oximetry 96 96 BMI result Body Mass Index 20.9 Appearance: Alert. Oriented X1. No acute distress. Intoxicated Eyes: PERRLA, No Nystagmus ENT: Pharynx normal. Oral Mucosa moist Neck: Normal inspection. Neck supple. CVS: Normal heart rate and rhythm. Pulses normal. Respiratory: No respiratory distress. Equal air entry bilateral, no wheezing/rales/rhonchi Abdomen: Soft and nontender. Bowel sounds are present, no mass palpable, no CVA tenderness Skin: Skin warm and dry. Normal skin color. Normal skin turgor. Extremities: No lower extremity edema. No calf tenderness Neuro: Oriented X 3. Moving all 4 extremities MDM - Alcohol MDM Narrative Medical decision making narrative: Patient alcoholic under increased stress had more alcohol than usual labs otherwise stable received IV fluids feeling much better head p.o. food and fluids per patient's family patient feeling increasingly depressed and at [place] thoughts will consult therapist for in depression and alcohol use Lab Data Attestation: I reviewed the patient's lab results. Result diagrams: 06/21/21 20:04 06/21/21 20:04 Labs: Lab Results 06/21/21 06/21/21 06/21/21 Range/Units 20:04 20:04 20:04 WBC 5.4 (4.8-10.8) X10*3/uL RBC 4.92 (4.60-5.80) X10*6/uL Hgb 15.5 (14.0-18.0) g/dl Hct 44.5 (42.0-52.0) % MCV 90.4 (80.0-98.0) fL MCH 31.5 (27.0-33.0) pg MCHC 34.8 (31.0-36.0) g/dl RDW 13.1 (11.0-16.0) % Plt Count 242 (160-400) X10*3/uL MPV 9.1 L (9.4-12.4) fL Immature Gran % (Auto) 0.2 (0.0-0.4) % Neut % (Auto) 48.9 (45-73) % Lymph % (Auto) 39.1 (20-40) % Isabella % (Auto) 7.6 (2-11) % Eos % (Auto) 3.1 (0-4) % Baso % (Auto) 1.1 (0-2) % Lymph # (Auto) 2.1 (1.2-4.9) X10*3/uL [place]abella # (Auto) 0.4 (0.1-1.2) X10*3/uL Eos # (Auto) 0.2 (0.0-0.4) X10*3/uL Baso # (Auto) 0.1 (0.0-0.2) X10*3/uL Abs Immat Gran (auto) 0.01 (0.00-0.03) X10*3/uL Absolute Neuts (auto) 2.6 (2.0-8.3) x10*3/uL Absolute Nucleated RBC 0.000 (0.0-0.012) X10*3/uL Nucleated RBC % (auto) 0.0 (0.0-0.2) /100WBC Sodium 144 (135-145) mmol/L Potassium 4.0 (3.3-5.1) mmol/L Chloride 108 (96-108) mmol/L Carbon Dioxide 26 (22-29) mmol/L Anion Gap 14 (12-20) BUN 6 L (9-16) mg/dL Creatinine 0.61 (0.5-1.4) mg/dL Estim Creat Clear Calc 147.3 Estimated GFR > 60 Random Glucose 100 (60-115) mg/dL Calcium 8.5 D (8.4-10.2) mg/dL Magnesium 2.1 (1.6-2.6) mg/dL Total Bilirubin 0.3 (0.0-1.0) mg/dL AST 34 (5-37) U/L ALT 26 (0-40) U/L Alkaline Phosphatase 79 (39-117) U/L Total Protein 6.4 L D (6.5-8.0) g/dL Albumin 4.1 (3.5-5.0) g/dL Ethyl Alcohol mg/dL COVID-19 ([facility]) Negative (Negative) COVID-19 Clin Com See Note 06/21/21 Range/Units 20:04 WBC (4.8-10.8) X10*3/uL RBC (4.60-5.80) X10*6/uL Hgb (14.0-18.0) g/dl Hct (42.0-52.0) % MCV (80.0-98.0) fL MCH (27.0-33.0) pg MCHC (31.0-36.0) g/dl RDW (11.0-16.0) % Plt Count (160-400) X10*3/uL MPV (9.4-12.4) fL Immature Gran % (Auto) (0.0-0.4) % Neut % (Auto) (45-73) % Lymph % (Auto) (20-40) % Isabella % (Auto) (2-11) % Eos % (Auto) (0-4) % Baso % (Auto) (0-2) % Lymph # (Auto) (1.2-4.9) X10*3/uL Isabella # (Auto) (0.1-1.2) X10*3/uL Eos # (Auto) (0.0-0.4) X10*3/uL Baso # (Auto) (0.0-0.2) X10*3/uL Abs Immat Gran (auto) (0.00-0.03) X10*3/uL Absolute Neuts (auto) (2.0-8.3) x10*3/uL Absolute Nucleated RBC (0.0-0.012) X10*3/uL Nucleated RBC % (auto) (0.0-0.2) /100WBC Sodium (135-145) mmol/L Potassium (3.3-5.1) mmol/L Chloride (96-108) mmol/L Carbon Dioxide (22-29) mmol/L Anion Gap (12-20) BUN (9-16) mg/dL Creatinine (0.5-1.4) mg/dL Estim Creat Clear Calc Estimated GFR Random Glucose (60-115) mg/dL Calcium (8.4-10.2) mg/dL Magnesium (1.6-2.6) mg/dL Total Bilirubin (0.0-1.0) mg/dL AST (5-37) U/L ALT (0-40) U/L Alkaline Phosphatase (39-117) U/L Total Protein (6.5-8.0) g/dL Albumin (3.5-5.0) g/dL Ethyl Alcohol 380 H* mg/dL COVID-19 ([facility]) (Negative) COVID-19 Clin Com Discharge Plan Discharge Clinical Impression: Alcoholic intoxication Patient Disposition: Home, Self-Care Instructions: Alcohol Intoxication (ED) Additional Instructions: Stop drinking alcohol Follow-up with detox Prescriptions: No Action pyridoxine (vitamin B6) 50 mg Tablet 50 mg PO DAILY Qty: 30 0RF folic acid 1 mg Tablet 1 mg PO DAILY Qty: 30 0RF thiamine mononitrate (vit B1) 100 mg Tablet 100 mg PO DAILY Qty: 30 0RF naltrexone 50 mg tablet 50 mg PO DAILY Qty: 30 1RF clonidine HCl 0.2 mg tablet 1 tab PO BID Qty: 60 0RF trazodone 50 mg tablet 50 mg PO BEDTIME 0RF oxcarbazepine 600 mg tablet 1 tab PO BID 0RF
[2021-06-21 20:25] LABS: COVID-19 Test Negative (Negative); IDNOW Serial# 16C4AD1C
[2021-06-21 20:29] LABS: Ethanol 380 mg/dL
[2021-06-21 20:32] LABS: Alanine Aminotransferase 26 U/L (0-40); Albumin Level 4.1 g/dL (3.5-5.0); Alkaline Phosphatase 79 U/L (39-117); Anion Gap 14 (12-20); Aspartate Amino Transferase 34 U/L (5-37); Bilirubin Total 0.3 mg/dL (0.0-1.0); Blood Urea Nitrogen 6 mg/dL (9-16); Calcium 8.5 mg/dL (8.4-10.2); Carbon Dioxide 26 mmol/L (22-29); Chloride 108 mmol/L (96-108); Creatinine Clr Calc Pharmacy 147.3; Estimated Glomerular Filt Rate > 60; Glucose Random 100 mg/dL (60-115); Magnesium 2.1 mg/dL (1.6-2.6); Sodium 144 mmol/L (135-145); Total Protein 6.4 g/dL (6.5-8.0)
[2021-06-21 21:52] VITALS: BP 120/50; PULSE 83; RESP 12; O2SAT 96
[2021-06-21] MEDS: LORazepam 2 MG/ML VIAL IVPUSH (22:15)
--- NOTE | 2021-06-21 22:53 | PC.NURSE ---
Patient woke up and began yelling that he wanted the EKG leads removed from his chest. Patient swearing and yelling. Patient called his for a sober ride home but the call went to voicemail. This technical writer and editor also attempted to call patient's and there was no answer and call went to voicemail. I left a message to have her call the ER when she got the message. Patient was given Ativan for anxiety with effect
--- NOTE | 2021-06-22 00:26 | PC.NURSE ---
pt is sleeping at this time. no sign of distress. Will continue to monitor.
--- NOTE | 2021-06-22 00:33 | PC.NURSE ---
pt called and is extremely concerned about his drinking and stability. Will call in the morning for update.
--- NOTE | 2021-06-22 02:21 | MHC.CARE ---
CARE team consult received. Pt is intoxicated and will not be seen during this shift. Pt is known to CARE team and [facility] from many past visits with similar complaints.
[2021-06-22 04:25] VITALS: BP 106/58; PULSE 80; RESP 18; O2SAT 98
--- NOTE | 2021-06-22 04:54 | PC.NURSE ---
Pt given a sandwich and drink. Was able to tolerate food well. pt denies any self harm to self or others. pt be quiet and cooperative. Will continue to monitor.
--- NOTE | 2021-06-22 04:56 | PC.NURSE ---
pt does not demonstrate any sign of withdrawal at this time.
[2021-06-22 06:15] VITALS: BP 128/87; PULSE 82; RESP 16; O2SAT 96
[2021-06-22 07:23] VITALS: BP 108/53; PULSE 81; RESP 14; TEMP 36.8; O2SAT 97
--- NOTE | 2021-06-22 07:46 | PC.NURSE ---
pt a/o x 3 no sob/brad noted speaks in full sentences. pt is requesting to be d/c'd home, denies any si/hi. pt states that he will wait to see care team.pt given sharon sofia, linsey and wander.
--- NOTE | 2021-06-22 08:16 | MHC.MBSS ---
pt's rohini ([phone]) she will be able to pick pt up when/if he is to be d/'c home.
--- NOTE | 2021-06-22 08:19 | PC.NURSE ---
care team at bedside pt aware of plan of care.
--- NOTE | 2021-06-22 09:15 | PC.NURSE ---
all belongings returned to pt and pt's rohini was called and is aware that pt is getting a ride home which was booked by the care team
--- NOTE | 2021-06-22 09:16 | MHC.CARE ---
Risk Assessment: CARE Team met with Pt who presented to [facility] via EMS 06/21/21 called by his for alcohol intoxication. Pts BAL was 380 at 2003. Today, Pt presents as alert, orientated and engaged. Pt was somewhat guarded at first and minimizing of his alcohol use. Pt reported his called EMS unnecessarily. Pt denies current SI/HI/AH/VH. Pt has current providers through [facility] and is seen for PTSD. CARE Team spoke with Pts who has no safety concerns regarding discharge. Plan for Pt to be discharged to follow up with current outpatient providers. Pt provided with [facility] crisis informaiton.
== END 2021-06-22 09:17 | disposition home or self-care (01) ==
PROVIDERS: Emergency Provider Internal Medicine; PCP Physician Assistant Medical
DX: F10.129 Alcohol abuse with intoxication, unspecified (principal); Y90.8 Blood alcohol level of 240 mg/100 ml or more; Z20.822 Contact with and (suspected) exposure to COVID-19; F17.210 Nicotine dependence, cigarettes, uncomplicated; Z71.6 Tobacco abuse counseling
CPT/HCPCS: 36415; 80053; 82077; 83735; 85025; 87635; 93005; 96360; 96375; 99285; J2060

== ENCOUNTER 2021-07-26 12:55 | Emergency (ER) | payer OTHER, SELFPAY ==
[2021-07-26 13:05] VITALS: BP 126/78; PULSE 102; O2SAT 99
--- NOTE | 2021-07-26 15:08 | ED_ITS ---
HPI - Alcohol General Chief Complaint: ETOH/Substance Use Stated Complaint: etoh Time Seen by Provider: 07/26/21 13:06 Source: patient and EMS Mode of arrival: EMS History of Present Illness HPI narrative: 35-year-old female with a past medical history of ETOH abuse, anxiety, depression, PTSD, BIBA for ETOH intoxication. Patient admits to Drinking too much, will not specify quantity. Reports hard alcohol. Denies illicit drugs. Denies SI/HI. Denies trauma/fall, headache, abdominal pain, CP/SOB MD complaint: alcohol intoxication Last drink: Unknown Related Data Home Medications Medication Instructions Recorded Confirmed oxcarbazepine 600 mg tablet 1 tab PO BID 01/18/21 06/21/21 trazodone 50 mg tablet 50 mg PO BEDTIME 01/18/21 06/21/21 Previous Rx's Medication Instructions Recorded clonidine HCl 0.2 mg tablet 1 tab PO BID #60 tab 12/18/20 folic acid 1 mg tablet 1 mg PO DAILY #30 tab 12/18/20 naltrexone 50 mg tablet 50 mg PO DAILY #30 tab 12/18/20 pyridoxine (vitamin B6) 50 mg 50 mg PO DAILY #30 tab 12/18/20 tablet thiamine mononitrate (vit B1) 100 100 mg PO DAILY #30 tab 12/18/20 mg tablet Allergies Allergy/AdvReac Type Severity Reaction Status Date / Time No Known Allergies Allergy Unverified 01/10/20 19:47 [No Known Allergies*] Review of Systems Review of Systems: Constitutional: No Fever ENT/Mouth: No Nasal Congestion, No sore throat Eyes: No Eye Pain, No Swelling, No Redness Cardiovascular: No Chest Pain, No SOB Respiratory: No Cough, No Dyspnea Gastrointestinal: No Nausea, No Vomiting, No Diarrhea, No Constipation, No Abdominal pain Genitourinary: No Dysuria, No Flank Pain, No Urinary Flow Changes Musculoskeletal: No joint pain, No Myalgias Skin: No Skin Lesions, No rash Neuro: No Weakness, No Loss of Consciousness, No Headache Psych: No Anxiety/Panic, No Depression, No SI/HI, No Social Issue, Yes all other systems are reviewed and are negative [facility] Past Medical History Attestation statement: The following information was validated with the patient. Medical History Alcohol abuse Anxiety Depression PTSD (post-traumatic stress disorder) Social History Social History Household Members: Spouse Housing: Apartment Do you presently have visiting nurse or other home services: No Unable to assess alcohol history related to: Unknown Alcohol intake: current Alcohol intake frequency: 3 or more drinks per day Alcohol type: hard liquor Patient Tobacco Use Status: Tobacco use Unknown Tobacco use type: Cigarette Cigarette Packs Per Day: 0.5 Cigarettes Per Day: 10.0 Years Smoked: since age 16 e-Cigarette/Vaping Use: Never Used Second Hand Smoke Exposure: No Substance Use Type: Other Advance Directives: No Advance Directives Information Provided: No service: No Sexual orientation: Straight/Heterosexual Physical Exam ED Vital Signs: Vital Signs - 24 hr 07/26/21 15:11 Temperature 98 F Pulse Rate 98 Respiratory Rate 18 Blood Pressure 124/56 L Pulse Oximetry 97 BMI result Body Mass Index 22.7 Const Other: + ETOH odor on breath General: cooperative, alert, awake and intoxicated appearing Limitations: other limitations HENMT Head: Yes normal to inspection, Yes atraumatic, No Donnelly's sign and No raccoon eyes Ears: hearing grossly normal bilaterally General nose exam: Normal external nose present Face and sinus: Yes normal facial exam Eyes General: appearance normal, both eyes and all related structures Pupils: Equal, round and reactive pupils present EOM: EOMs intact bilaterally Neck Neck: Yes normal visual inspection and Yes no meningeal signs Resp Effort & Inspection: normal respiratory effort and no respiratory distress Auscultation: clear to auscultation bilaterally, no crackles, no rales, no rhonchi and no wheezes Cardio Rate: regular rate Heart sounds: S1 normal heart sound present and S2 normal heart sound present GI Inspection: Yes normal to inspection Palpation (GI): Soft to palpation, nontender, no guarding and not rigid Back/Spine/Pelvis Other: [place] Skin Rashes: no rashes Wounds: no wounds Neuro Other: No tremors or tongue fasciculations General: no meningeal signs Cranial nerves: Yes Equal, round and reactive pupils present Gait exam (Neuro): Normal gait present Extrem General: Yes normal to inspection Psych Thought content: suicidality and no homicidality Course Course Course Narrative: -ethanol 135 -1153--on re-evaluation patient sleeping comfortably, NAD -0866--patient is slurring words, aggressively yelling at staff, threatening to leave Id still very intoxicated. Will give 2 IM Ativan for patient and staff safety -1915--patient sitting up talking, eating and drinking in the ED, still slurring words. -2044--patient is ambulating in the ED with steady gait, tolerating p.o. Clinically sober for discharge. will be picking patient up. Patient not interested in detox. -2099--ED care transferred to KONSTANTIN Andrade pending arriving to ED to safely bring patient home MDM - Alcohol MDM Narrative Medical decision making narrative: 35-year-old female with a past medical history of ETOH abuse, anxiety, depression, PTSD, BIBA for ETOH intoxication. Patient admits to Drinking too much, will not specify quantity. On exam VSS, NAD, ETOH odor on breath, appears intoxicated, no evidence of trauma, [place]. No evidence of EtOH withdrawal at this time Plan: ethanol, observe and reassess for clinical sobriety Differential Diagnosis Differential diagnosis: Likely alcohol dependence and alcohol intoxication Medical Records Attestation: I reviewed the patient's medical records. Lab Data Attestation: I reviewed the patient's lab results. Labs: Lab Results 07/26/21 Range/Units 15:27 Ethyl Alcohol 446 H* mg/dL Discharge Plan Discharge Clinical Impression: Alcoholic intoxication Patient Disposition: Still a Patient Instructions: Abuse of Alcohol (DC), Alcohol Use Disorder (ED) Additional Instructions: Stop drinking alcohol, it can kill you You should reconsider detox Prescriptions: No Action pyridoxine (vitamin B6) 50 mg Tablet 50 mg PO DAILY Qty: 30 0RF folic acid 1 mg Tablet 1 mg PO DAILY Qty: 30 0RF thiamine mononitrate (vit B1) 100 mg Tablet 100 mg PO DAILY Qty: 30 0RF naltrexone 50 mg tablet 50 mg PO DAILY Qty: 30 1RF clonidine HCl 0.2 mg tablet 1 tab PO BID Qty: 60 0RF trazodone 50 mg tablet 50 mg PO BEDTIME 0RF oxcarbazepine 600 mg tablet 1 tab PO BID 0RF Referrals: [facility] [Provider Group] - 2 days
[2021-07-26 15:11] VITALS: BP 124/56; PULSE 98; RESP 18; TEMP 36.6; O2SAT 97; BMI 22.7
[2021-07-26 15:46] LABS: Ethanol 446 mg/dL
[2021-07-26] MEDS: LORazepam 2 MG/ML VIAL IM (17:03)
== END 2021-07-26 21:16 | disposition home or self-care (01) ==
PROVIDERS: Physician Assistant; Emergency Provider Emergency Medicine Emergency Medical Services
DX: F10.129 Alcohol abuse with intoxication, unspecified (principal); Y90.8 Blood alcohol level of 240 mg/100 ml or more; F17.210 Nicotine dependence, cigarettes, uncomplicated; Z71.6 Tobacco abuse counseling; Z79.899 Other long term (current) drug therapy; Z71.41 Alcohol abuse counseling and surveillance of alcoholic
CPT/HCPCS: 36415; 82077; 96372; 99283; 99284; J2060

== ENCOUNTER 2021-08-01 20:48 | Emergency (ER) | payer OTHER, SELFPAY ==
--- NOTE | ~2021-08-01 | CT_ITS ---
EXAMINATION: CT HEAD WITHOUT CONTRAST CLINICAL INFORMATION: Fall, EtOH COMPARISON: 12/14/2020 TECHNIQUE: Contiguous axial imaging was performed from the skull base to vertex without intravenous administration of contrast. This CT examination was performed using dose optimization techniques as appropriate, variously including the following: *Automated exposure control *Adjustment of mA and/or kV according to patient size (this includes techniques or standardized protocols for targeted exams where dose is matched to indication/reason for exam; i.e. extremities or head) *Use of iterative reconstruction technique DLP: 685 mGy-cm FINDINGS: There is no evidence of acute intracranial hemorrhage or territorial infarction. No abnormal mass effect or midline shift is seen. Chauhan to white matter differentiation is well preserved. No extra-axial fluid collections are identified. The ventricles are normal in size. Redemonstrated regions of encephalomalacia in the inferior right frontal and temporal lobes. Mild volume loss is noted. There is right frontal scalp soft tissue swelling. No acute fracture is seen. There is mucosal thickening of the right maxillary sinus and partially opacified bilateral ethmoid air cells. The mastoid air cells are well-aerated. CT/CT head/brain wo con IMPRESSION: No acute intracranial pathology. Right frontal scalp soft tissue swelling.
--- NOTE | 2021-08-01 20:58 | ED.ALCOHOL ---
HPI - Alcohol General Chief Complaint: ETOH/Substance Use Stated Complaint: ETOH SI/HI Time Seen by Provider: 08/01/21 20:57 Source: EMS Mode of arrival: EMS History of Present Illness HPI narrative: Patient ETOH intoxicated been to [facility] in an out for detox made suicidal comments to the family intoxicated abrasion to the right forehead possible fall. Patient not complaining of suicidal feeling at this time intoxicated Related Data Home Medications Medication Instructions Recorded Confirmed oxcarbazepine 600 mg tablet 1 tab PO BID 01/18/21 08/01/21 trazodone 50 mg tablet 50 mg PO BEDTIME 01/18/21 08/01/21 Previous Rx's Medication Instructions Recorded clonidine HCl 0.2 mg tablet 1 tab PO BID #60 tab 12/18/20 Allergies Allergy/AdvReac Type Severity Reaction Status Date / Time No Known Allergies Allergy Unverified 01/10/20 19:47 [No Known Allergies*] Review of Systems Review of Systems: Yes Unobtainable due to mental status PMFSH Past Medical History Medical History Alcohol abuse Anxiety Depression PTSD (post-traumatic stress disorder) Social History Social History Household Members: Spouse Housing: Apartment Do you presently have visiting nurse or other home services: No Unable to assess alcohol history related to: Unknown Alcohol intake: current Alcohol intake frequency: 3 or more drinks per day Alcohol type: hard liquor Patient Tobacco Use Status: Tobacco use Unknown Tobacco use type: Cigarette Cigarette Packs Per Day: 0.5 Cigarettes Per Day: 10.0 Years Smoked: since age 16 e-Cigarette/Vaping Use: Never Used Second Hand Smoke Exposure: No Substance Use Type: Other Advance Directives: No Advance Directives Information Provided: No service: No Sexual orientation: Straight/Heterosexual Physical Exam ED Vital Signs: Vital Signs - 24 hr 08/01/21 20:59 Temperature 99 F Pulse Rate 84 Respiratory Rate 16 Blood Pressure 127/76 Pulse Oximetry 98 BMI result Body Mass Index 20.7 Appearance: Alert. Intoxicated ETOH++ Eyes: PERRL ENT: Pharynx normal. Oral Mucosa moist Neck: Normal inspection. Neck supple. CVS: Normal heart rate and rhythm. Pulses normal. Respiratory: No respiratory distress. Equal air entry bilateral, no wheezing/rales/rhonchi Abdomen: Soft and nontender. Bowel sounds are present, no mass palpable, no CVA tenderness Skin: Skin warm and dry. Normal skin color. Normal skin turgor. Extremities: No lower extremity edema. No calf tenderness Neuro: Awake and alert MDM - Alcohol MDM Narrative Medical decision making narrative: Patient toxic aided with closed head injury CT scan head is negative will wait till he gets over and plan for detox or discharge home Lab Data Attestation: I reviewed the patient's lab results. Result diagrams: 08/01/21 21:54 08/01/21 21:54 Labs: Lab Results 08/01/21 08/01/21 08/01/21 Range/Units 21:54 21:54 21:54 WBC 7.1 (4.8-10.8) X10*3/uL RBC 4.98 (4.60-5.80) X10*6/uL Hgb 16.1 (14.0-18.0) g/dl Hct 47.0 (42.0-52.0) % MCV 94.4 (80.0-98.0) fL MCH 32.3 (27.0-33.0) pg MCHC 34.3 (31.0-36.0) g/dl RDW 13.0 (11.0-16.0) % Plt Count 317 D (160-400) X10*3/uL MPV 9.1 L (9.4-12.4) fL Immature Gran % (Auto) 0.3 (0.0-0.4) % Neut % (Auto) 37.8 L (45-73) % Lymph % (Auto) 47.6 H (20-40) % [place] % (Auto) 5.1 (2-11) % Eos % (Auto) 7.6 H (0-4) % Baso % (Auto) 1.6 (0-2) % Lymph # (Auto) 3.4 (1.2-4.9) X10*3/uL [place] # (Auto) 0.4 (0.1-1.2) X10*3/uL Eos # (Auto) 0.5 H (0.0-0.4) X10*3/uL Baso # (Auto) 0.1 (0.0-0.2) X10*3/uL Abs Immat Gran (auto) 0.02 (0.00-0.03) X10*3/uL Absolute Neuts (auto) 2.7 (2.0-8.3) x10*3/uL Absolute Nucleated RBC 0.000 (0.0-0.012) X10*3/uL Nucleated RBC % (auto) 0.0 (0.0-0.2) /100WBC Sodium 145 (135-145) mmol/L Potassium 4.2 (3.3-5.1) mmol/L Chloride 109 H (96-108) mmol/L Carbon Dioxide 26 (22-29) mmol/L Anion Gap 14 (12-20) BUN 13 D (9-16) mg/dL Creatinine 0.68 (0.5-1.4) mg/dL Estim Creat Clear Calc 138.7 Estimated GFR > 60 Random Glucose 96 (60-115) mg/dL Calcium 8.5 (8.4-10.2) mg/dL Magnesium 2.3 (1.6-2.6) mg/dL Total Bilirubin 0.3 (0.0-1.0) mg/dL AST 38 H (5-37) U/L ALT 29 (0-40) U/L Alkaline Phosphatase 76 (39-117) U/L Total Protein 7.2 (6.5-8.0) g/dL Albumin 4.6 (3.5-5.0) g/dL Ethyl Alcohol 479 H* mg/dL COVID-19 ([facility]) (Negative) COVID-19 Clin Com 08/01/21 Range/Units 21:54 WBC (4.8-10.8) X10*3/uL RBC (4.60-5.80) X10*6/uL Hgb (14.0-18.0) g/dl Hct (42.0-52.0) % MCV (80.0-98.0) fL MCH (27.0-33.0) pg MCHC (31.0-36.0) g/dl RDW (11.0-16.0) % Plt Count (160-400) X10*3/uL MPV (9.4-12.4) fL Immature Gran % (Auto) (0.0-0.4) % Neut % (Auto) (45-73) % Lymph % (Auto) (20-40) % [place] % (Auto) (2-11) % Eos % (Auto) (0-4) % Baso % (Auto) (0-2) % Lymph # (Auto) (1.2-4.9) X10*3/uL [place] # (Auto) (0.1-1.2) X10*3/uL Eos # (Auto) (0.0-0.4) X10*3/uL Baso # (Auto) (0.0-0.2) X10*3/uL Abs Immat Gran (auto) (0.00-0.03) X10*3/uL Absolute Neuts (auto) (2.0-8.3) x10*3/uL Absolute Nucleated RBC (0.0-0.012) X10*3/uL Nucleated RBC % (auto) (0.0-0.2) /100WBC Sodium (135-145) mmol/L Potassium (3.3-5.1) mmol/L Chloride (96-108) mmol/L Carbon Dioxide (22-29) mmol/L Anion Gap (12-20) BUN (9-16) mg/dL Creatinine (0.5-1.4) mg/dL Estim Creat Clear Calc Estimated GFR Random Glucose (60-115) mg/dL Calcium (8.4-10.2) mg/dL Magnesium (1.6-2.6) mg/dL Total Bilirubin (0.0-1.0) mg/dL AST (5-37) U/L ALT (0-40) U/L Alkaline Phosphatase (39-117) U/L Total Protein (6.5-8.0) g/dL Albumin (3.5-5.0) g/dL Ethyl Alcohol mg/dL COVID-19 ([facility]) Negative (Negative) COVID-19 Clin Com See Note Discharge Plan Discharge Clinical Impression: Alcoholic intoxication Patient Disposition: Still a Patient Instructions: Alcohol Intoxication (ED) Additional Instructions: Stop drinking alcohol Follow-up with detox Prescriptions: No Action clonidine HCl 0.2 mg tablet 1 tab PO BID Qty: 60 0RF trazodone 50 mg tablet 50 mg PO BEDTIME 0RF oxcarbazepine 600 mg tablet 1 tab PO BID 0RF
[2021-08-01 20:59] VITALS: BP 127/76; PULSE 84; RESP 16; TEMP 37.2; O2SAT 98; BMI 20.7
[2021-08-01 22:00] LABS: MANUAL DIFF FLAG NO
[2021-08-01 22:03] LABS: Basophils Absolute Auto 0.1 X10*3/uL (0.0-0.2); Basophils Percent Auto 1.6 % (0-2); Eosinophils Absolute Auto 0.5 X10*3/uL (0.0-0.4); Eosinophils Percent Auto 7.6 % (0-4); Hemoglobin 16.1 g/dl (14.0-18.0); Imm Gran Abs Auto 0.02 X10*3/uL (0.00-0.03); Imm Gran Pct Auto 0.3 % (0.0-0.4); Lymphocytes Absolute Auto 3.4 X10*3/uL (1.2-4.9); Lymphocytes Percent Auto 47.6 % (20-40); Mean Corpuscular HGB Conc 34.3 g/dl (31.0-36.0); Mean Corpuscular Hemoglobin 32.3 pg (27.0-33.0); Mean Corpuscular Volume 94.4 fL (80.0-98.0); Mean Platelet Volume 9.1 fL (9.4-12.4); Monocytes Absolute Auto 0.4 X10*3/uL (0.1-1.2); Monocytes Percent Auto 5.1 % (2-11); Neutrophils Absolute Auto 2.7 x10*3/uL (2.0-8.3); Neutrophils Percent Auto 37.8 % (45-73); Platelet Count 317 X10*3/uL (160-400); Red Blood Count 4.98 X10*6/uL (4.60-5.80); White Blood Count 7.1 X10*3/uL (4.8-10.8)
[2021-08-01 22:17] LABS: Ethanol 479 mg/dL
[2021-08-01 22:19] LABS: Alanine Aminotransferase 29 U/L (0-40); Albumin Level 4.6 g/dL (3.5-5.0); Alkaline Phosphatase 76 U/L (39-117); Anion Gap 14 (12-20); Aspartate Amino Transferase 38 U/L (5-37); Bilirubin Total 0.3 mg/dL (0.0-1.0); Blood Urea Nitrogen 13 mg/dL (9-16); Calcium 8.5 mg/dL (8.4-10.2); Carbon Dioxide 26 mmol/L (22-29); Chloride 109 mmol/L (96-108); Creatinine Clr Calc Pharmacy 138.7; Estimated Glomerular Filt Rate > 60; Glucose Random 96 mg/dL (60-115); Magnesium 2.3 mg/dL (1.6-2.6); Potassium 4.2 mmol/L (3.3-5.1); Sodium 145 mmol/L (135-145); Total Protein 7.2 g/dL (6.5-8.0)
[2021-08-01 22:42] LABS: COVID-19 Test Negative (Negative); IDNOW Serial# 55D5AD1C
[2021-08-02 03:47] VITALS: BP 139/78; PULSE 94; RESP 17; TEMP 36.5; O2SAT 97
[2021-08-02 04:35] LABS: Amphetamine Screen Urine Not Detected (Not Detect); Barbiturates, Urine Not Detected (Not Detect); Benzodiazepines Screen Urine POSITIVE (Not Detect); Cannabinoid Screen Urine Not Detected (Not Detect); Cocaine Screen Urine Not Detected (Not Detect); Fentanyl, urine Not Detected (Not Detect); Opiate Screen Urine Not Detected (Not Detect); Phencyclidine Screen Urine Not Detected (Not Detect)
--- NOTE | 2021-08-02 06:34 | PC.NURSE ---
Patient slept through the night, asymptomatic of withdrawal at this time, out of room x 2 for bathroom use, patient continues under influence, called requested to section patient and send him inpatient, VSS, care team will assess the patient see he needs full evaluation or not, will continue to monitor.
--- NOTE | 2021-08-02 07:11 | PC.NURSE ---
patient appears to remain asleep at present respirations are even and unlabored, patient appears in no distress
== END 2021-08-02 07:46 | disposition home or self-care (01) ==
PROVIDERS: Emergency Provider Internal Medicine
DX: F10.120 Alcohol abuse with intoxication, uncomplicated (principal); Y90.8 Blood alcohol level of 240 mg/100 ml or more; S00.81XA Abrasion of other part of head, initial encounter; W18.39XA Other fall on same level, initial encounter; R45.851 Suicidal ideations; Z20.822 Contact with and (suspected) exposure to COVID-19; F32.9 Major depressive disorder, single episode, unspecified; F43.11 Post-traumatic stress disorder, acute; Z79.899 Other long term (current) drug therapy; Y93.89 Activity, other specified; Y92.9 Unspecified place or not applicable; Y99.9 Unspecified external cause status
CPT/HCPCS: 36415; 70450; 80053; 80307; 82077; 83735; 85025; 87635; 99284

== ENCOUNTER 2021-08-07 20:27 | Emergency (ER) | payer OTHER, SELFPAY ==
[2021-08-07 20:36] VITALS: BP 124/76; PULSE 100; O2SAT 97
[2021-08-07 20:47] VITALS: BP 113/72; PULSE 93; RESP 18; TEMP 36.6; O2SAT 97; BMI 19.3
[2021-08-07 22:00] VITALS: BP 116/68; PULSE 97; RESP 18; TEMP 36.7; O2SAT 97
--- NOTE | 2021-08-07 22:17 | ED.ALCOHOL ---
HPI - Alcohol General Chief Complaint: ETOH/Substance Use Stated Complaint: ETOH Time Seen by Provider: 08/07/21 22:15 Source: patient and EMS Mode of arrival: EMS Limitations: no limitations History of Present Illness HPI narrative: Patient comes to emergency room complaining of alcohol intoxication. EMS reports that someone told him that the patient was running around his house naked making SI statements. Patient was found to be intoxicated by EMS, patient denied any SI or HI. Patient states that he has an appointment in [facility] tomorrow Related Data Home Medications Medication Instructions Recorded Confirmed oxcarbazepine 600 mg tablet 1 tab PO BID 01/18/21 08/01/21 trazodone 50 mg tablet 50 mg PO BEDTIME 01/18/21 08/01/21 Previous Rx's Medication Instructions Recorded clonidine HCl 0.2 mg tablet 1 tab PO BID #60 tab 12/18/20 Allergies Allergy/AdvReac Type Severity Reaction Status Date / Time No Known Allergies Allergy Unverified 01/10/20 19:47 [No Known Allergies*] Review of Systems Review of Systems: Constitutional : No Weight loss, No Fever, No Chills, No Night Sweats, No Fatigue, No Malaise ENT/Mouth : No Hearing loss, No Ear Pain, No Nasal Congestion, No Sinus Pain, No Hoarseness, No sore throat, No Rhinorrhea, No Swallowing Difficulty Eyes: No Eye Pain, No Swelling, No Redness, No Foreign Body, No Discharge, No Vision Changes Cardiovascular : No Chest Pain, No SOB, No Dyspnea on Exertion, No Orthopnea, No Edema, No Palpitations Respiratory : No Cough, No Sputum, No Wheezing, No Smoke Exposure, No Dyspnea Gastrointestinal : No Nausea, No Vomiting, No Diarrhea, No Constipation, No abdominal Pain, No Hematochezia, No Melena Genitourinary : no irregular bleeding, No Dysuria, No Urinary Frequency, No Hematuria, No Urinary Incontinence, No Urgency, No Flank Pain, No Urinary Flow Changes, No Hesitancy Musculoskeletal : No joint pain, No Myalgias, No Joint Swelling Skin : No Skin Lesions, No rash Neuro : No Weakness, No Numbness, No Paresthesias, No Loss of Consciousness, No Dizziness, No Headache Psych : Patient denies suicidal or homicidal ideation, patient admits to drinking alcohol Heme/Lymph: No Bruising, No Bleeding,No Lymphadenopathy Endocrine : No Polyuria, No Polydipsia, No Temperature Intolerance [facility] Past Medical History Medical History Alcohol abuse Anxiety Depression PTSD (post-traumatic stress disorder) Social History Social History Household Members: Spouse Housing: Apartment Do you presently have visiting nurse or other home services: No Unable to assess alcohol history related to: Unknown Alcohol intake: current Alcohol intake frequency: 3 or more drinks per day Alcohol type: hard liquor Patient Tobacco Use Status: Tobacco use Unknown Tobacco use type: Cigarette Cigarette Packs Per Day: 0.5 Cigarettes Per Day: 10.0 Years Smoked: since age 16 e-Cigarette/Vaping Use: Never Used Second Hand Smoke Exposure: No Substance Use Type: Other Advance Directives: No Advance Directives Information Provided: No service: No Sexual orientation: Straight/Heterosexual Physical Exam ED Vital Signs: Vital Signs - 24 hr 08/07/21 20:47 Temperature 97.9 F Pulse Rate 93 Respiratory Rate 18 Blood Pressure 113/72 Pulse Oximetry 97 BMI result Body Mass Index 19.3 Const Other: Appearance: Alert. Oriented X3. No acute distress. Intoxicated but calm and cooperative Eyes: Pupils equal, round and reactive to light. ENT: Pharynx normal. Neck: Normal inspection. Neck supple. No lymph nodes noted. No crepitus CVS: Normal heart rate and rhythm. Pulses normal. Normal S1 and S2 Respiratory: No respiratory distress. Breath sounds normal. No Wheezing. No rales Abdomen: Soft and nontender. No rigidity. No distention. Skin: Skin warm and dry. Normal skin color. Normal skin turgor. Extremities: No lower extremity edema. No Lacerations. No Rash Neuro: Oriented X 3. No motor deficit. No sensory deficit. Moving all extremities. Mild slurred speech CN 2 through 12 grossly intact, still seems a bit unsteady Psych: calm, cooperative, normal affect Course Course Course Narrative: Patient is not suicidal or homicidal, patient is still intoxicated. Patient has an appointment with [facility] tomorrow in [place]. Patient states that he intends to follow up with this meeting. Plan: Metabolize to freedom, discharge when sober [facility], (late entry in system) Discharge Plan Discharge Clinical Impression: Alcohol abuse, Alcoholic intoxication Patient Disposition: Still a Patient Prescriptions: No Action clonidine HCl 0.2 mg tablet 1 tab PO BID Qty: 60 0RF trazodone 50 mg tablet 50 mg PO BEDTIME 0RF oxcarbazepine 600 mg tablet 1 tab PO BID 0RF
--- NOTE | 2021-08-07 23:27 | PC.NURSE ---
pt sleeping, wakes to verbal stimulus, vss
[2021-08-08 04:00] VITALS: BP 132/76; PULSE 86; RESP 16; O2SAT 99
--- NOTE | 2021-08-08 06:19 | PC.NURSE ---
[facility] [place] at 2330. Since that time he has been sleeping in hallway bed, wakes to verbal stimuli. he has been taking PO food and fluids and has remained calm and cooperative. there have been no complaints. Pt is awaiting daytime transfer to [facility] for a detox bed and verbalizes an understanding of this.
[2021-08-08 06:25] VITALS: BP 119/70; PULSE 92; RESP 16; O2SAT 99
--- NOTE | 2021-08-08 07:30 | PC.NURSE ---
pt is a/o x 3 no sob/brad noted skin pink warm dry speaks in full sentences. amb (i) gait steady to bathroom and btb. pt refused at this time to go to [facility]. pt states that his want him to go but he does not. pt states i don't need to go i am fine . aware.
--- NOTE | 2021-08-08 08:01 | PC.NURSE ---
CALLED REQUESTING MEDICAL RECORD BE SENT TO [facility]. PT IS REFUSING TO SIGN RELEASE AND WANTS TO BE DISCHARGE HOME
[2021-08-08 08:10] VITALS: BP 144/79; PULSE 105; RESP 16; TEMP 36.9; O2SAT 96
== END 2021-08-08 08:56 | disposition home or self-care (01) ==
PROVIDERS: Emergency Provider Emergency Medicine; PCP Physician Assistant Medical
DX: F10.129 Alcohol abuse with intoxication, unspecified (principal); Y90.9 Presence of alcohol in blood, level not specified; R45.851 Suicidal ideations; F33.1 Major depressive disorder, recurrent, moderate; F17.210 Nicotine dependence, cigarettes, uncomplicated; Z71.6 Tobacco abuse counseling; Z79.899 Other long term (current) drug therapy
CPT/HCPCS: 99284

== ENCOUNTER 2021-11-08 23:03 | Emergency (ER) | payer OTHER, SELFPAY ==
[2021-11-08 23:29] VITALS: BP 126/78; PULSE 131; RESP 18; TEMP 36.4; O2SAT 94; BMI 17.7
--- NOTE | 2021-11-08 23:29 | ED_ITS ---
HPI - Alcohol General Chief Complaint: ETOH/Substance Use Stated Complaint: ETOH Time Seen by Provider: 11/08/21 23:29 Source: patient Mode of arrival: EMS Limitations: other (ETOH intoxication) History of Present Illness HPI narrative: drank too much couldn't stand friend called 911 no trauma reported, hx of visits in past for same MD complaint: alcohol intoxication Last drink: Just prior to admission Chronic alcohol use: Yes Previous visits for alcohol intoxication: Yes Recent trauma: No Associated symptoms: denies other symptoms Treatments prior to arrival: none Related Data Home Medications Medication Instructions Recorded Confirmed oxcarbazepine 600 mg tablet 1 tab PO BID 01/18/21 08/01/21 trazodone 50 mg tablet 50 mg PO BEDTIME 01/18/21 08/01/21 Previous Rx's Medication Instructions Recorded clonidine HCl 0.2 mg tablet 1 tab PO BID #60 tabs 12/18/20 Allergies Allergy/AdvReac Type Severity Reaction Status Date / Time No Known Allergies Allergy Verified 11/08/21 23:32 [No Known Allergies*] Review of Systems Review of Systems: Constitutional : No Fever, No Chills ENT/Mouth : No Ear Pain, No Nasal Congestion, No sore throat Eyes: No Eye Pain, No Swelling, No Redness Cardiovascular : No Chest Pain, No SOB Respiratory : No Cough, No Sputum, No Dyspnea Gastrointestinal : No Nausea, No Vomiting, No Diarrhea, No Hematochezia, No Melena Genitourinary : No Dysuria, No Urinary Frequency, No Hematuria Musculoskeletal : No Myalgias Skin : No Skin Lesions, No rash Neuro : No Weakness, No Numbness, No Paresthesias, No Dizziness, No Headache Psych : positive Anxiety, no Depression, no SI/HI Heme/Lymph: No Lymphadenopathy Endocrine : No Polyuria, No Polydipsia All other systems reviewed and are negative PMFSH Past Medical History Source: old records reviewed Medical History Alcohol abuse Anxiety Depression PTSD (post-traumatic stress disorder) Social History Social History Household Members: Spouse Housing: Apartment Do you presently have visiting nurse or other home services: No Unable to assess alcohol history related to: Unknown Alcohol intake: current Alcohol intake frequency: 3 or more drinks per day Alcohol type: hard liquor Patient Tobacco Use Status: Tobacco use Unknown Tobacco use type: Cigarette Cigarette Packs Per Day: 0.5 Cigarettes Per Day: 10.0 Years Smoked: since age 16 e-Cigarette/Vaping Use: Never Used Second Hand Smoke Exposure: No Substance Use Type: Other service: No Sexual orientation: Straight/Heterosexual Physical Exam ED Vital Signs: Vital Signs - 24 hr 11/08/21 23:29 Temperature 97.6 F Pulse Rate 131 H Respiratory Rate 18 Blood Pressure 126/78 Pulse Oximetry 94 Oxygen Delivery Method Room Air BMI result Body Mass Index 17.7 Appearance: Sleepy but easily woke to voice Oriented X3. No acute distress. ETOH odor slurred speech Eyes: Pupils equal, round and reactive to light. Nystagmus noted ENT: Pharynx normal. Atraumatic old healed over scab to bridge of nose - not new Neck: Normal inspection. Neck supple. CVS: tachycardic heart rate and rhythm. Pulses normal. Respiratory: No respiratory distress. Breath sounds normal. Abdomen: Soft and nontender. Skin: Skin warm and dry. Normal skin color. Normal skin turgor. Extremities: No lower extremity edema. No calf ttp Neuro: disoriented to time. No motor deficit. No sensory deficit. Course Course Course Narrative: Patient placed in physician observation at 12am. The indication for observation is that the patient needs more time to clinically sober up. At this time the patient is well developed well nourished, lungs clear, CV tachycardic, abd n ontender. MDM - Alcohol MDM Narrative Medical decision making narrative: 35 yo male with hx of ETOH abuse - drinking heavy tonight no trauma no SI, he is very intoxicated will observe until clinically sober Lab Data Result diagrams: 11/08/21 23:27 11/08/21 23:27 Labs: Lab Results 11/08/21 11/08/21 11/08/21 Range/Units 23:27 23:27 23:27 WBC 7.7 (4.8-10.8) X10*3/uL RBC 5.37 (4.60-5.80) X10*6/uL Hgb 17.2 (14.0-18.0) g/dl Hct 49.5 (42.0-52.0) % MCV 92.2 (80.0-98.0) fL MCH 32.0 (27.0-33.0) pg MCHC 34.7 (31.0-36.0) g/dl RDW 12.9 (11.0-16.0) % Plt Count 425 H D (160-400) X10*3/uL MPV 8.7 L (9.4-12.4) fL Immature Gran % (Auto) 0.3 (0.0-0.4) % Neut % (Auto) 55.0 (45-73) % Lymph % (Auto) 38.5 (20-40) % [place] % (Auto) 4.8 (2-11) % Eos % (Auto) 0.1 (0-4) % Baso % (Auto) 1.3 (0-2) % Lymph # (Auto) 3.0 (1.2-4.9) X10*3/uL [place] # (Auto) 0.4 (0.1-1.2) X10*3/uL Eos # (Auto) 0.0 (0.0-0.4) X10*3/uL Baso # (Auto) 0.1 (0.0-0.2) X10*3/uL Abs Immat Gran (auto) 0.02 (0.00-0.03) X10*3/uL Absolute Neuts (auto) 4.3 (2.0-8.3) x10*3/uL Absolute Nucleated RBC 0.000 (0.0-0.012) X10*3/uL Nucleated RBC % (auto) 0.0 (0.0-0.2) /100WBC Sodium 145 (135-145) mmol/L Potassium 4.6 (3.3-5.1) mmol/L Chloride 104 (96-108) mmol/L Carbon Dioxide 20 L (22-29) mmol/L Anion Gap 26 H (12-20) BUN 8 L (9-16) mg/dL Creatinine 0.71 (0.5-1.4) mg/dL Estim Creat Clear Calc 113.9 Estimated GFR > 60 Random Glucose 102 (60-115) mg/dL Calcium 9.0 (8.4-10.2) mg/dL Total Bilirubin 0.3 (0.0-1.0) mg/dL AST 35 (5-37) U/L ALT 18 (0-40) U/L Alkaline Phosphatase 90 (39-117) U/L Total Protein 7.8 (6.5-8.0) g/dL Albumin 5.0 (3.5-5.0) g/dL Ethyl Alcohol 508 H* mg/dL COVID-19 ([facility]) Negative (Negative) COVID-19 Clin Com See Note Discharge Plan Discharge Clinical Impression: Alcoholic intoxication Qualifiers: Complication of substance-induced condition: uncomplicated Qualified Code(s): F10.920 - Alcohol use, unspecified with intoxication, uncomplicated Patient Disposition: Still a Patient Prescriptions: No Action clonidine HCl 0.2 mg tablet 1 tab PO BID Qty: 60 0RF trazodone 50 mg tablet 50 mg PO BEDTIME oxcarbazepine 600 mg tablet 1 tab PO BID
[2021-11-08 23:34] LABS: MANUAL DIFF FLAG NO
[2021-11-08 23:35] LABS: Basophils Absolute Auto 0.1 X10*3/uL (0.0-0.2); Basophils Percent Auto 1.3 % (0-2); Eosinophils Percent Auto 0.1 % (0-4); Hematocrit 49.5 % (42.0-52.0); Hemoglobin 17.2 g/dl (14.0-18.0); Imm Gran Abs Auto 0.02 X10*3/uL (0.00-0.03); Imm Gran Pct Auto 0.3 % (0.0-0.4); Lymphocytes Percent Auto 38.5 % (20-40); Mean Corpuscular HGB Conc 34.7 g/dl (31.0-36.0); Mean Corpuscular Volume 92.2 fL (80.0-98.0); Mean Platelet Volume 8.7 fL (9.4-12.4); Monocytes Absolute Auto 0.4 X10*3/uL (0.1-1.2); Monocytes Percent Auto 4.8 % (2-11); Neutrophils Absolute Auto 4.3 x10*3/uL (2.0-8.3); Platelet Count 425 X10*3/uL (160-400); Red Blood Count 5.37 X10*6/uL (4.60-5.80); Red Cell Distribution Width 12.9 % (11.0-16.0); White Blood Count 7.7 X10*3/uL (4.8-10.8)
[2021-11-08 23:50] LABS: COVID-19 Test Negative (Negative); IDNOW Serial# 16C4AD1C
[2021-11-08 23:57] LABS: Alanine Aminotransferase 18 U/L (0-40); Alkaline Phosphatase 90 U/L (39-117); Anion Gap 26 (12-20); Aspartate Amino Transferase 35 U/L (5-37); Bilirubin Total 0.3 mg/dL (0.0-1.0); Blood Urea Nitrogen 8 mg/dL (9-16); Carbon Dioxide 20 mmol/L (22-29); Chloride 104 mmol/L (96-108); Creatinine Clr Calc Pharmacy 113.9; Estimated Glomerular Filt Rate > 60; Ethanol 508 mg/dL; Glucose Random 102 mg/dL (60-115); Potassium 4.6 mmol/L (3.3-5.1); Sodium 145 mmol/L (135-145); Total Protein 7.8 g/dL (6.5-8.0)
--- NOTE | 2021-11-09 09:13 | PC.NURSE ---
PT AWAKE, ALERT AND ORIENTED. SKIN WARM AND DRY. RESP UNLABORED. DENIES N/V. TOLERATING PO. NO C/O PAIN. AMBULATORY IN ED, GAIT STEADY. DENIES SI/HI. AGREEABLE TO DC HOME. PT CALLING FOR RIDE.
== END 2021-11-09 09:16 | disposition home or self-care (01) ==
PROVIDERS: Emergency Provider Emergency Medicine
DX: F10.129 Alcohol abuse with intoxication, unspecified (principal); Y90.8 Blood alcohol level of 240 mg/100 ml or more; Z20.822 Contact with and (suspected) exposure to COVID-19; F17.210 Nicotine dependence, cigarettes, uncomplicated; Z79.899 Other long term (current) drug therapy; Z71.6 Tobacco abuse counseling
CPT/HCPCS: 80053; 82077; 85025; 87635; 99283; 99284

== ENCOUNTER 2021-11-10 12:36 | Emergency (ER) | payer OTHER, SELFPAY ==
[2021-11-10 14:17] VITALS: BP 134/78; PULSE 18; RESP 120; TEMP 35.9; O2SAT 95; BMI 21.4
== END 2021-11-10 19:43 | disposition left against medical advice (07) ==
PROVIDERS: Emergency Provider Emergency Medicine
DX: F10.120 Alcohol abuse with intoxication, uncomplicated (principal); Y90.9 Presence of alcohol in blood, level not specified
CPT/HCPCS: 99281; 99283

== ENCOUNTER 2021-12-19 11:06 | Emergency (ER) | payer OTHER, SELFPAY ==
--- NOTE | ~2021-12-19 | CT_ITS ---
CT head/brain wo con CLINICAL INFORMATION: Reason for Exam Intoxicated questioning fall COMPARISON: Prior CT scan from 08/01/2021 TECHNIQUE: Department standard protocol. This CT examination was performed using dose optimization techniques as appropriate, variously including the following: *Automated exposure control *Adjustment of mA and/or kV according to patient size (this includes techniques or standardized protocols for targeted exams where dose is matched to indication/reason for exam; i.e. extremities or head) *Use of iterative reconstruction technique DLP: 1441 mGy-cm FINDINGS: CEREBRAL HEMISPHERES: Redemonstration of area of encephalomalacia in the inferior right frontal and temporal lobe. No new or acute infarct. BRAIN PARENCHYMA: Normal delong-white matter differentiation. SUBDURAL SPACE: No bleed. BASAL GANGLIA AND PINEAL GLAND: Unremarkable VENTRICLES: Symmetric and normal in size. CEREBELLUM AND BRAINSTEM: No space-occupying mass, hemorrhage or acute infarct. CEREBELLOPONTINE ANGLES: No lesion found. ORBITS: No intraorbital mass. VESSELS: Unremarkable SKULL BASE: Unremarkable INCLUDED SINUSES AT SKULL BASE: Clear SKULL AND SKIN: No fracture or bone lesion found. CT/CT head/brain wo con IMPRESSION: No acute intracranial process. An old area of encephalomalacia in the inferior right frontal and temporal lobes unchanged. Normal CT scan does not rule out the possibility of hyperacute infarct in the first 12 hours. If patient symptoms persist may consider correlation with MRI, which is more sensitive for early acute infarct.
--- NOTE | ~2021-12-19 | XR_ITS ---
EXAMINATION: XR CHEST CLINICAL INFORMATION: Intoxicated. Question fall. COMPARISON: None TECHNIQUE: Frontal view of the chest was obtained. FINDINGS: Cardiac silhouette is normal in size. Lungs are well aerated. There is no lobar consolidation. No pleural effusion or pneumothorax. XR/XR chest 1V IMPRESSION: No acute pulmonary pathology.
--- NOTE | ~2021-12-19 | CT_ITS ---
EXAMINATION: CT CERVICAL SPINE without contrast CLINICAL INFORMATION: Reason for Exam Intoxicated questioning fall COMPARISON: No prior CT available, TECHNIQUE: Computed axial sagittal and coronal images acquired using department's standard protocol. This CT examination was performed using dose optimization techniques as appropriate, variously including the following: *Automated exposure control *Adjustment of mA and/or kV according to patient size (this includes techniques or standardized protocols for targeted exams where dose is matched to indication/reason for exam; i.e. extremities or head) *Use of iterative reconstruction technique CONTRAST: None DLP: 703 mGy-cm FINDINGS: SKULL BASE: Visualized structures at skull base are normal, Included facial sinuses are clear, CERVICAL VERTEBRAE: Seven cervical vertebrae identified maintaining proper height and alignment, DISCS: C1-C2: There is no CT evidence of significant osseous narrowing of the central canal or neural foramen. C2-C3: There is no CT evidence of significant osseous narrowing of the central canal or neural foramen. C3-C4: There is no CT evidence of significant osseous narrowing of the central canal or neural foramen. C4-C5: There is no CT evidence of significant osseous narrowing of the central canal or neural foramen. C5-C6: There is no CT evidence of significant osseous narrowing of the central canal or neural foramen. C6-C7: There is no CT evidence of significant osseous narrowing of the central canal or neural foramen. C7-T1: There is no CT evidence of significant osseous narrowing of the central canal or neural foramen. PARAVERTEBRAL SOFT TISSUE: Paravertebral soft tissues unremarkable. CT/CT cervical spine wo con IMPRESSION: No CT evidence of cervical spine fracture.
--- NOTE | ~2021-12-19 | CT_ITS ---
EXAMINATION: CT ABDOMEN AND PELVIS WITH CONTRAST CLINICAL INFORMATION: Elevated LFTs COMPARISON: Abdominal ultrasound December 19, 2021 TECHNIQUE: Multidetector volumetric images were obtained from the superior aspect of the liver through the pubic symphysis following administration 85 mL of Omnipaque 350 intravenous contrast. Sagittal and coronal reformatted images were obtained on the technologist's workstation. This CT examination was performed using dose optimization techniques as appropriate, variously including the following: *Automated exposure control *Adjustment of mA and/or kV according to patient size (this includes techniques or standardized protocols for targeted exams where dose is matched to indication/reason for exam; i.e. extremities or head) *Use of iterative reconstruction technique DLP: 562 mGy-cm FINDINGS: Visualized lung bases demonstrate mild dependent atelectasis. The liver is enlarged and demonstrates diffusely decreased attenuation. The gallbladder is normal in appearance. The pancreas, spleen and adrenal glands are unremarkable. Symmetrically enhancing kidneys. No hydronephrosis. There is a 1.7 cm cyst within the lower pole the left kidney. Surgical clips in the region of the GE junction. Normal caliber loops of small and large bowel. Surgical clips suggesting prior appendectomy. The bladder is normal in appearance. The prostate gland is normal in size. No gross free pelvic fluid. No inguinal lymphadenopathy. No acute osseous abnormality. CT/CT abdomen pelvis w con IMPRESSION: Hepatomegaly with diffusely decreased attenuation of the liver. Findings are nonspecific but most suggestive of hepatic steatosis. Correlation with liver enzymes recommended. Fleischner guidelines were followed.
--- NOTE | ~2021-12-19 | US_ITS ---
EXAMINATION: US ABDOMEN COMPLETE CLINICAL INFORMATION: Increased lipase. COMPARISON: None TECHNIQUE: Real-time imaging of the abdominal viscera. FINDINGS: PANCREAS: Not well visualized obscured by bowel gas. Aorta and IVC not visualized obscured by bowel gas. LIVER: Increased echogenicity of the liver parenchyma, this can be seen in the setting of hepatic steatosis or liver parenchymal disease. The liver is normal in size. The liver contour is normal. No focal hepatic lesion. There is no intrahepatic biliary duct dilatation seen. GALLBLADDER: Normal. The gallbladder is physiologically distended without evidence of stones, sludge, polyps, wall thickening or pericholecystic fluid. COMMON BILE DUCT: Normal in caliber measuring 0.2 cm in diameter. RIGHT KIDNEY: Normal. No hydronephrosis. No renal calculi or focal parenchymal lesions. The kidney measures 12 cm in maximum dimension. LEFT KIDNEY: There is a cyst lower pole left kidney 1.6 cm. No hydronephrosis. No renal calculi or focal parenchymal lesions. The kidney measures 10.5 cm in maximum dimension. SPLEEN: Normal. The spleen measures 8.2 cm in maximum dimension. FREE FLUID: None. US/US abdomen complete IMPRESSION: Increased echogenicity of the liver parenchyma, this can be seen in the setting of hepatic steatosis or liver parenchymal disease. Simple cyst left kidney 1.6 cm. Pancreas, aorta and IVC not visualized obscured by bowel gas.
[2021-12-19 11:14] VITALS: BP 131/85; BP 136/92; PULSE 102; PULSE 108; RESP 22; TEMP 36.9; O2SAT 97; BMI 17.7
--- NOTE | 2021-12-19 11:22 | ECG_ITS ---
Test Reason : etoh Blood Pressure : / mmHG Vent. Rate : 085 BPM Atrial Rate : 085 BPM P-R Int : 164 ms QRS Dur : 106 ms QT Int : 346 ms P-R-T Axes : 056 118 070 degrees QTc Int : 411 ms Normal sinus rhythm Right axis deviation Abnormal ECG When compared with ECG of 21-JUN-2021 19:52, No significant change was found Referred By: Karen Garcia Electronically Signed By:CARMINA CANTOR
--- NOTE | 2021-12-19 11:39 | PC.NURSE ---
Patient arrived intoxicated, Patient was placed on restaurant hourly team member, labs were drawn, vitals were taken, and IV line was inserted on his right arm 20 gauge and EKG.
[2021-12-19 11:40] LABS: MANUAL DIFF FLAG NO
[2021-12-19 11:46] LABS: Basophils Absolute Auto 0.1 X10*3/uL (0.0-0.2); Basophils Percent Auto 1.4 % (0-2); Eosinophils Percent Auto 0.7 % (0-4); Hematocrit 50.3 % (42.0-52.0); Hemoglobin 18.1 g/dl (14.0-18.0); Imm Gran Abs Auto 0.02 X10*3/uL (0.00-0.03); Imm Gran Pct Auto 0.4 % (0.0-0.4); Lymphocytes Absolute Auto 2.2 X10*3/uL (1.2-4.9); Lymphocytes Percent Auto 38.7 % (20-40); Mean Corpuscular Hemoglobin 30.9 pg (27.0-33.0); Mean Corpuscular Volume 85.8 fL (80.0-98.0); Mean Platelet Volume 9.2 fL (9.4-12.4); Monocytes Absolute Auto 0.4 X10*3/uL (0.1-1.2); Monocytes Percent Auto 7.3 % (2-11); Neutrophils Absolute Auto 2.9 x10*3/uL (2.0-8.3); Neutrophils Percent Auto 51.5 % (45-73); Platelet Count 338 X10*3/uL (160-400); Red Blood Count 5.86 X10*6/uL (4.60-5.80); Red Cell Distribution Width 11.3 % (11.0-16.0); White Blood Count 5.6 X10*3/uL (4.8-10.8)
--- NOTE | 2021-12-19 11:46 | PC.NURSE ---
ekg performed, xray performed
--- NOTE | 2021-12-19 11:50 | ED.ALCOHOL ---
HPI - Alcohol General Chief Complaint: ETOH/Substance Use Stated Complaint: ETOH INTOX PER EMS Time Seen by Provider: 12/19/21 11:14 Source: patient and EMS Mode of arrival: EMS Limitations: other (Intoxicated) History of Present Illness HPI narrative: 36-year-old male with a past medical history of ETOH abuse, anxiety, depression, PTSD who recently was discharged from the [facility] for detox approximately 1 week ago presenting to the ED via EMS after his mom was concerned due to he was intoxicated. Patient reports he drank prior to arrival. Patient is very vague poor historian very intoxicated. Denies any drug usage. Denies any fevers, chills, dizziness, headaches, neck pain/stiffness, trouble swallowing or breathing, recent falls or trauma, sore throat, nasal congestion/rhinorrhea, ear pain, chest pain or shortness of breath, nausea/vomiting/diarrhea constipation, black or bloody stools, abdominal pain, back pain, dysuria, hematuria, abnormal penile discharge, rashes, recent travel or sick contacts, lower extremity edema or calf tenderness, or any other symptoms complaints or concerns at this time. MD complaint: alcohol intoxication and alcohol dependence Last drink: Just prior to admission Chronic alcohol use: Yes Previous visits for alcohol intoxication: Yes Recent trauma: No Associated symptoms: denies other symptoms Treatments prior to arrival: none Related Data Home Medications Medication Instructions Recorded Confirmed oxcarbazepine 600 mg tablet 1 tab PO BID 01/18/21 08/01/21 trazodone 50 mg tablet 50 mg PO BEDTIME 01/18/21 08/01/21 Previous Rx's Medication Instructions Recorded clonidine HCl 0.2 mg tablet 1 tab PO BID #60 tabs 12/18/20 cephalexin 500 mg capsule 500 mg PO Q6H 7 days #28 caps 12/19/21 doxycycline hyclate 100 mg tablet 100 mg PO BID 7 days #14 tabs 12/19/21 Allergies Allergy/AdvReac Type Severity Reaction Status Date / Time No Known Allergies Allergy Verified 11/10/21 14:23 [No Known Allergies*] Review of Systems Review of Systems: Constitutional : No Fever, No Chills ENT/Mouth : No Ear Pain, No Nasal Congestion, No sore throat Eyes: No Eye Pain, No Swelling, No Redness Cardiovascular : No Chest Pain, No SOB Respiratory : No Cough, No Sputum, No Dyspnea Gastrointestinal : No ingestions, No Nausea, No Vomiting, No Diarrhea, No Hematochezia, No Melena Genitourinary : No Dysuria, No Urinary Frequency, No Hematuria Musculoskeletal : No Myalgias Skin : No Skin Lesions, No rash Neuro : No Weakness, No Numbness, No Paresthesias, No Dizziness, No Headache Psych : No Anxiety, No Depression, No SI/HI, No AVH, No thoughts of self injury Heme/Lymph: No Lymphadenopathy Endocrine : No Polyuria, No Polydipsia Yes all other systems are reviewed and are negative [facility] Past Medical History Attestation statement: The following information was validated with the patient. Source: old records reviewed and nursing notes reviewed Medical History Alcohol abuse Anxiety Depression PTSD (post-traumatic stress disorder) Social History Social History Household Members: Spouse Housing: Apartment Do you presently have visiting nurse or other home services: No Unable to assess alcohol history related to: Unknown Alcohol intake: current Alcohol intake frequency: 3 or more drinks per day Alcohol type: hard liquor Patient Tobacco Use Status: Current everyday Tobacco user Tobacco use type: Cigarette Cigarette Packs Per Day: 0.5 Cigarettes Per Day: 10.0 Years Smoked: since age 16 e-Cigarette/Vaping Use: Never Used Second Hand Smoke Exposure: No Use of substances other than those prescribed or required for medical reasons: Unknown Substance Use Type: Other Advance Directives: No Advance Directives Information Provided: No service: No Sexual orientation: Straight/Heterosexual Physical Exam ED Vital Signs: Vital Signs - 24 hr 12/19/21 11:14 12/19/21 13:08 12/19/21 13:55 Temperature 98.4 F Pulse Rate 102 H 76 73 Respiratory Rate 22 H 18 20 Blood Pressure 136/92 H 112/73 123/76 Pulse Oximetry 97 98 99 Oxygen Delivery Method Room Air Nasal Cannula 12/19/21 16:00 12/19/21 18:00 12/19/21 19:17 Temperature Pulse Rate 94 Respiratory Rate 16 16 16 Blood Pressure 118/74 Pulse Oximetry 96 95 Oxygen Delivery Method Room Air Room Air BMI result Body Mass Index 17.7 vital signs have been reviewed as normal and appeared to be correct. Blood pressure 136/92. Heart rate 102. Respiration rate 22. Temperature normal. Oxygen saturation normal. Appearance: Alert. Oriented X3. Intoxicated with EtOH on odor. No acute distress. Head: Normal external exam. Normocephalic. Atraumatic. No Donnelly signs noted. No raccoon eyes noted Eyes: PERRLA. EOMI. Conjunctiva and sclera normal. Eyelids normal. ENT: EAC normal. TM's Normal. No septal hematoma noted. No hemotympanum noted. Pharynx normal. Uvula midline. Moist mucous membranes. No lesions/ulcerations or masses noted on the tongue. Normal voice. No trismus noted. No drooling noted. No muffled voice noted. Neck: Normal inspection. Neck supple. FROM. No adenopathy. Thyroid Normal. No tracheal deviation noted. No crepitus is noted. No meningeal signs. No neck mass noted. No signs of trauma noted. CVS: Normal heart rate and rhythm. Heart sound normal. Pulses normal throughout. No murmurs/rales/gallops. Respiratory: No respiratory distress. Painless inspiration. Breath sounds normal. No wheezes/rales/rhonchi noted. Chest nontender. No crepitus is noted. No signs of trauma noted. No accessory muscle usage noted or decreased air movement noted. Abdomen: Soft and nontender. Bowel sounds normal in all 4 quadrants. No distention noted. No organomegaly noted. No visible injury noted. Back: No CVA tenderness. Full range of motion noted. Nontender. No signs of trauma. Patient neuro intact bilaterally and distally on all 4 extremities. Patient's reflexes intact bilaterally and distally on all 4 extremities. No rashes/lesion/induration/fluctuance or signs of infection noted. Skin: Skin warm and dry. Normal skin color. Normal skin turgor. To left maxillary area patient has abscess/wound with purulent drainage noted and mild surrounding erythema/tender to touch/warm to touch consistent with draining abscess with surrounding cellulitis. No additional abscesses/rashes/lesions/lacerations noted. Extremities: No lower extremity edema. No calf tenderness is noted. Extremities exhibit normal range of motion and nontender. Neuro: Oriented X 3. No motor deficit. No sensory deficit. Reflexes normal. Normal steady gait. No focal neuro deficits noted. CN's II-XII intact bilaterally? Vascular: + radial pulses/+ 2 distal pedal pulses/+2 dorsalis pedis b/l. Normal cap refill. No cyanosis noted to upper extremity nails and lower extremity toes nails. Course Course Course Narrative: 11:25am - 36-year-old male with a past medical history of ETOH abuse, anxiety, depression, PTSD who recently was discharged from the [facility] for detox approximately 1 week ago presenting to the ED via EMS after his mom was concerned due to he was intoxicated. Patient reports he drank prior to arrival. Patient is very vague poor historian very intoxicated. Denies any drug usage. Patient noted to have abscess to left maxillary area. No streaking noted. Plan: Labs, UA, CT scan of brain/cervical spine, chest x-ray, seizure precautions, EKG, see wall scale, EKG. Provide a L of IV fluids and 2 mg of IV Versed due to patient uncooperative and re-evaluate. Reevaluation(s) Reevaluation #1: - H&H 5.86/18.8 - AST 55. - alkaline phosphate 138 - lipase 194 - ethanol level 502 - patient negative for COVID. - otherwise all other labs are within normal limits - will obtain abdominal ultrasound due to elevated lipase and LFTs re-evaluate Time: 12:03 Reevaluation #2: Patient very agitated therefore giving 2 mg of Versed, 5 mg of Haldol and 50 mg of Benadryl and re-evaluate. Time: 12:58 Reevaluation #3: - abdominal ultrasound revealed hepatic steatosis and a simple left kidney cyst they were unable to see the pancreas, aorta and IVC due to bowel gas. Therefore CT scan of abdomen and pelvis with IV contrast was ordered - CT scan of abdomen pelvis IV contrast revealed hepatomegaly and hepatic steatosis otherwise no other acute processes were noted. - CT scan of brain and cervical spine revealed chronic changes no acute processes noted. - therefore at this time patient is medically cleared and placed in Physician observation because the patient needs more time to be evaluated by crisis versus detox for possible detox for alcohol will continue to monitor. Time: 16:41 Consultations Consultation #1: At this time patient is refusing detox reports that he has stuff to take care of at home. At this time he is clinically sober. Although I explained to him that he should call a ride therefore he is calling a sober ride. He will be discharged with antibiotics doxycycline Keflex for abscess to his left maxillary area. Along with instructions to return if any new or worsening symptoms follow up with primary care provider. Patient understands agrees with this plan. Time: 20:43 [facility] - Alcohol Medical Records Attestation: I reviewed the patient's medical records. Lab Data Attestation: I reviewed the patient's lab results. Result diagrams: 12/19/21 11:35 12/19/21 11:35 Labs: Lab Results 12/19/21 12/19/21 12/19/21 Range/Units 11:35 11:35 11:35 WBC 5.6 (4.8-10.8) X10*3/uL RBC 5.86 H (4.60-5.80) X10*6/uL Hgb 18.1 H (14.0-18.0) g/dl Hct 50.3 (42.0-52.0) % MCV 85.8 (80.0-98.0) fL MCH 30.9 (27.0-33.0) pg MCHC 36.0 (31.0-36.0) g/dl RDW 11.3 (11.0-16.0) % Plt Count 338 (160-400) X10*3/uL MPV 9.2 L (9.4-12.4) fL Immature Gran % (Auto) 0.4 (0.0-0.4) % Neut % (Auto) 51.5 (45-73) % Lymph % (Auto) 38.7 (20-40) % [place] % (Auto) 7.3 (2-11) % Eos % (Auto) 0.7 (0-4) % Baso % (Auto) 1.4 (0-2) % Lymph # (Auto) 2.2 (1.2-4.9) X10*3/uL [place] # (Auto) 0.4 (0.1-1.2) X10*3/uL Eos # (Auto) 0.0 (0.0-0.4) X10*3/uL Baso # (Auto) 0.1 (0.0-0.2) X10*3/uL Abs Immat Gran (auto) 0.02 (0.00-0.03) X10*3/uL Absolute Neuts (auto) 2.9 (2.0-8.3) x10*3/uL Absolute Nucleated RBC 0.000 (0.0-0.012) X10*3/uL Nucleated RBC % (auto) 0.0 (0.0-0.2) /100WBC PT 11.2 (10.0-13.1) SEC INR 1.0 (0.9-1.1) Sodium 141 (135-145) mmol/L Potassium 4.0 (3.3-5.1) mmol/L Chloride 96 (96-108) mmol/L Carbon Dioxide 29 (22-29) mmol/L Anion Gap 20 (12-20) BUN 9 (9-16) mg/dL Creatinine 0.70 (0.5-1.4) mg/dL Estim Creat Clear Calc 114.6 Estimated GFR > 60 Random Glucose 108 (60-115) mg/dL Calcium 9.0 (8.4-10.2) mg/dL Magnesium 1.8 (1.6-2.6) mg/dL Total Bilirubin 0.9 (0.0-1.0) mg/dL AST 55 H (5-37) U/L ALT 28 (0-40) U/L Alkaline Phosphatase 138 H D (39-117) U/L Total Creatine Kinase 142 (38-174) U/L Total Protein 7.5 (6.5-8.0) g/dL Albumin 4.7 (3.5-5.0) g/dL Lipase 194 H (8-78) U/L Urine Color Urine Appearance Urine pH (5.0-8.0) Ur Specific [place] (1.005-1.025) Urine Protein (Neg-Trace) mg/dL Urine Glucose (UA) (Negative) mg/dL Urine Ketones (Negative) mg/dL Urine Blood (Negative) Urine Nitrite (Negative) Ur Leukocyte Esterase (Negative) Ethyl Alcohol 502 H* mg/dL COVID-19 ([facility]) (Negative) COVID-19 Clin Com 12/19/21 12/19/21 Range/Units 11:55 18:12 WBC (4.8-10.8) X10*3/uL RBC (4.60-5.80) X10*6/uL Hgb (14.0-18.0) g/dl Hct (42.0-52.0) % MCV (80.0-98.0) fL MCH (27.0-33.0) pg MCHC (31.0-36.0) g/dl RDW (11.0-16.0) % Plt Count (160-400) X10*3/uL MPV (9.4-12.4) fL Immature Gran % (Auto) (0.0-0.4) % Neut % (Auto) (45-73) % Lymph % (Auto) (20-40) % [place] % (Auto) (2-11) % Eos % (Auto) (0-4) % Baso % (Auto) (0-2) % Lymph # (Auto) (1.2-4.9) X10*3/uL [place] # (Auto) (0.1-1.2) X10*3/uL Eos # (Auto) (0.0-0.4) X10*3/uL Baso # (Auto) (0.0-0.2) X10*3/uL Abs Immat Gran (auto) (0.00-0.03) X10*3/uL Absolute Neuts (auto) (2.0-8.3) x10*3/uL Absolute Nucleated RBC (0.0-0.012) X10*3/uL Nucleated RBC % (auto) (0.0-0.2) /100WBC PT (10.0-13.1) SEC INR (0.9-1.1) Sodium (135-145) mmol/L Potassium (3.3-5.1) mmol/L Chloride (96-108) mmol/L Carbon Dioxide (22-29) mmol/L Anion Gap (12-20) BUN (9-16) mg/dL Creatinine (0.5-1.4) mg/dL Estim Creat Clear Calc Estimated GFR Random Glucose (60-115) mg/dL Calcium (8.4-10.2) mg/dL Magnesium (1.6-2.6) mg/dL Total Bilirubin (0.0-1.0) mg/dL AST (5-37) U/L ALT (0-40) U/L Alkaline Phosphatase (39-117) U/L Total Creatine Kinase (38-174) U/L Total Protein (6.5-8.0) g/dL Albumin (3.5-5.0) g/dL Lipase (8-78) U/L Urine Color Yellow Urine Appearance Clear Urine pH 6.5 (5.0-8.0) Ur Specific [place] >= 1.030 H (1.005-1.025) Urine Protein Trace (Neg-Trace) mg/dL Urine Glucose (UA) Negative (Negative) mg/dL Urine Ketones Negative (Negative) mg/dL Urine Blood Negative (Negative) Urine Nitrite Negative (Negative) Ur Leukocyte Esterase Negative (Negative) Ethyl Alcohol mg/dL COVID-19 ([facility]) Negative (Negative) COVID-19 Clin Com See Note Imaging Data Chest x-ray: Attestation: I personally reviewed and interpreted this imaging study as follows: Radiologist's impression: FINDINGS: Cardiac silhouette is normal in size. Lungs are well aerated. There is no lobar consolidation. No pleural effusion or pneumothorax. XR/XR chest 1V IMPRESSION: No acute pulmonary pathology. CT scan of brain/cervical spine without contrast: Attestation: I personally reviewed and interpreted this imaging study as follows: Radiologist's impression: FINDINGS: ? CEREBRAL HEMISPHERES: Redemonstration of area of encephalomalacia in the inferior right frontal and temporal lobe. No new or acute infarct. BRAIN PARENCHYMA: Normal delong-white matter differentiation. SUBDURAL SPACE: No bleed. BASAL GANGLIA AND PINEAL GLAND: Unremarkable VENTRICLES: Symmetric and normal in size. CEREBELLUM AND BRAINSTEM: No space-occupying mass, hemorrhage or acute infarct. CEREBELLOPONTINE ANGLES: No lesion found. ORBITS: No intraorbital mass. VESSELS: Unremarkable SKULL BASE: Unremarkable INCLUDED SINUSES AT SKULL BASE: Clear SKULL AND SKIN: No fracture or bone lesion found. CT/CT head/brain wo con IMPRESSION: No acute intracranial process. ? An old area of encephalomalacia in the inferior right frontal and temporal lobes unchanged. ? Normal CT scan does not rule out the possibility of hyperacute infarct in the first 12 hours. If patient symptoms persist may consider correlation with MRI, which is more sensitive for early acute infarct. Abdominal ultrasound: Attestation: I personally reviewed and interpreted this imaging study as follows: Radiologist's impression: FINDINGS: PANCREAS: Not well visualized obscured by bowel gas. Aorta and IVC not visualized obscured by bowel gas. LIVER: Increased echogenicity of the liver parenchyma, this can be seen in the setting of hepatic steatosis or liver parenchymal disease. The liver is normal in size. The liver contour is normal. No focal hepatic lesion. There is no intrahepatic biliary duct dilatation seen. GALLBLADDER: Normal. The gallbladder is physiologically distended without evidence of stones, sludge, polyps, wall thickening or pericholecystic fluid. COMMON BILE DUCT: Normal in caliber measuring 0.2 cm in diameter. RIGHT KIDNEY: Normal. No hydronephrosis. No renal calculi or focal parenchymal lesions. The kidney measures 12 cm in maximum dimension. LEFT KIDNEY: There is a cyst lower pole left kidney 1.6 cm. No hydronephrosis. No renal calculi or focal parenchymal lesions. The kidney measures 10.5 cm in maximum dimension. SPLEEN: Normal. The spleen measures 8.2 cm in maximum dimension. FREE FLUID: None. US/US abdomen complete IMPRESSION: Increased echogenicity of the liver parenchyma, this can be seen in the setting of hepatic steatosis or liver parenchymal disease. ? Simple cyst left kidney 1.6 cm. ? Pancreas, aorta and IVC not visualized obscured by bowel gas. CT scan abdomen pelvis with IV contrast: Attestation: I personally reviewed and interpreted this imaging study as follows: Radiologist's impression: FINDINGS: Visualized lung bases demonstrate mild dependent atelectasis. The liver is enlarged and demonstrates diffusely decreased attenuation. The gallbladder is normal in appearance. The pancreas, spleen and adrenal glands are unremarkable. Symmetrically enhancing kidneys. No hydronephrosis. There is a 1.7 cm cyst within the lower pole the left kidney. Surgical clips in the region of the GE junction. Normal caliber loops of small and large bowel. Surgical clips suggesting prior appendectomy. The bladder is normal in appearance. The prostate gland is normal in size. No gross free pelvic fluid. No inguinal lymphadenopathy. No acute osseous abnormality. CT/CT abdomen pelvis w con IMPRESSION: Hepatomegaly with diffusely decreased attenuation of the liver. Findings are nonspecific but most suggestive of hepatic steatosis. Correlation with liver enzymes recommended.? ? Fleischner guidelines were followed. Procedures Abscess I/D Site: face Side (if applicable): left Technique: other (Manual manipulation) Amount of fluid expressed (mL): 5 Sent for culture/gram staining?: No Irrigation: Yes Packing used?: none Complications: other (No complications patient tolerated procedure well) Critical Care Time Critical Care Time Critical Care Time: Yes Total Critical Care Time: 60 Attestation: I personally attest to this time spent taking care of the patient Discharge Plan Discharge Clinical Impression: Alcoholic intoxication, Hepatic steatosis, Hepatomegaly, Abscess of face Patient Disposition: Home, Self-Care Instructions: Alcohol Intoxication (ED), Abscess Incision and Drainage (DC) Prescriptions: New cephalexin 500 mg capsule 500 mg PO Q6H 7 Days Qty: 28 0RF doxycycline hyclate 100 mg tablet 100 mg PO BID 7 Days Qty: 14 0RF No Action clonidine HCl 0.2 mg tablet 1 tab PO BID Qty: 60 0RF trazodone 50 mg tablet 50 mg PO BEDTIME oxcarbazepine 600 mg tablet 1 tab PO BID Referrals: Physician,Unknown J [Primary Care Provider] - 2 days (your pcp)
[2021-12-19 11:55] LABS: Prothrombin Time 11.2 SEC (10.0-13.1)
[2021-12-19 11:56] LABS: Alanine Aminotransferase 28 U/L (0-40); Albumin Level 4.7 g/dL (3.5-5.0); Alkaline Phosphatase 138 U/L (39-117); Anion Gap 20 (12-20); Aspartate Amino Transferase 55 U/L (5-37); Bilirubin Total 0.9 mg/dL (0.0-1.0); Blood Urea Nitrogen 9 mg/dL (9-16); Carbon Dioxide 29 mmol/L (22-29); Chloride 96 mmol/L (96-108); Creatinine Clr Calc Pharmacy 114.6; Estimated Glomerular Filt Rate > 60; Ethanol 502 mg/dL; Glucose Random 108 mg/dL (60-115); Lipase 194 U/L (8-78); Magnesium 1.8 mg/dL (1.6-2.6); Sodium 141 mmol/L (135-145); Total Protein 7.5 g/dL (6.5-8.0)
[2021-12-19] MEDS: Midazolam HCl/PF 2 MG/2 ML VIAL IVPUSH (12:03)
--- NOTE | 2021-12-19 12:05 | PC.NURSE ---
pt combative/uncooperative/confused/agitated, pt attempting to pull out iv line and trying to rip off bp cuff, pulled of dance studio manager.
--- NOTE | 2021-12-19 12:06 | PC.NURSE ---
pt only received 1mg of versed iv at this time a verbal order by brian orellana, to obtain the ct scan and pt will receive the other 1mg if pt requires it
[2021-12-19] MEDS: 0.9 % Sodium Chloride 1,000 ML 999 ML IVCONT (12:10)
[2021-12-19 12:18] LABS: COVID-19 Test Negative (Negative)
--- NOTE | 2021-12-19 12:23 | PC.NURSE ---
pt continues to be uncooperative, ripped off cloth colors examiner-unable to reapply, ivf running per order, provider notified- pt requesting po, provider okd pt to eat.
[2021-12-19] MEDS: Haloperidol Lactate 5 MG/ML VIAL IVPUSH (12:48)
[2021-12-19] MEDS: diphenhydrAMINE HCL 50 MG/ML VIAL IVPUSH (12:48)
--- NOTE | 2021-12-19 12:51 | PC.NURSE ---
pt continued to be combative, uncooperative, provider made aware, pt medicated a second time, 2nd medication restraint was started.
[2021-12-19 13:08] VITALS: BP 112/73; PULSE 76; RESP 18; O2SAT 98
--- NOTE | 2021-12-19 13:32 | PC.NURSE ---
sleeping, nad, u/s done without any issues, heading for ct now, resp even and unlabored
[2021-12-19 13:55] VITALS: BP 123/76; PULSE 73; RESP 20; O2SAT 99
--- NOTE | 2021-12-19 14:03 | PC.NURSE ---
Patient returned from CT scan, patient vitals are stable, continuous with nasal cannula 2L, and seizure precaution. Patient is sleeping.
[2021-12-19] MEDS: iohexoL 350 MG/ML 100 ML INFUS..BTL IV (15:07)
[2021-12-19 16:00] VITALS: RESP 16
--- NOTE | 2021-12-19 17:59 | PC.NURSE ---
ciwa scale not done as patient is still sleeping from medication restraint given, pt wakes to stimulus-shaking, although falls back to sleep.
[2021-12-19 18:00] VITALS: RESP 16; O2SAT 96
--- NOTE | 2021-12-19 18:10 | PC.NURSE ---
attempted to call care team-no answer, asset recovery specialist is aware will notify provider as well.
[2021-12-19 18:23] LABS: Appearance Urine Clear; Color Urine Yellow; Glucose Urine UA Negative (Negative); Leukocyte Esterase Urine Negative (Negative); Nitrite Urine Negative (Negative); PH 6.5 (5.0-8.0); Specific Gravity - Urine >= 1.030 (1.005-1.025); Urine Blood Negative (Negative); Urine Ketones Negative (Negative); Urine Protein Trace mg/dL (Neg-Trace)
[2021-12-19 19:17] VITALS: BP 118/74; PULSE 94; RESP 16; O2SAT 95
--- NOTE | 2021-12-19 19:50 | PC.NURSE ---
Assumed care of pt. at 1900. Pt. just waking up after sleeping the last 4 hours. Pt. requested IV to be removed, was recommended to leave in for now, pt. has agreed to this. Pt. ok on feet to use urinal, and is ambulating around room with no issue.
[2021-12-19] MEDS: cephALEXin 500 MG CAPSULE PO (20:52)
--- NOTE | 2021-12-19 20:58 | MHC.RECOVSUP ---
? Reason for consult:ETOH o Current location:ED12 o Identified substance use concern: - Support ? Intervention: o Community resources provided o Harm reduction discussion ? Plan:Pt is being discharged ? Additional information:PT was recently at [facility] in [place], [facility] and relapsed, RC discussed detox with pt but he refused.
--- NOTE | 2021-12-19 21:00 | PC.NURSE ---
Pt. is declining to go to rehab and wants to be discharged. Pt. provided phone to call for ride and will be dc'd. Pt is alert and oriented, ambulating with steady gait.
== END 2021-12-19 21:07 | disposition home or self-care (01) ==
PROVIDERS: Physician Assistant Medical; Emergency Provider Emergency Medicine
DX: F10.120 Alcohol abuse with intoxication, uncomplicated (principal); Y90.8 Blood alcohol level of 240 mg/100 ml or more; R45.1 Restlessness and agitation; M27.2 Inflammatory conditions of jaws; K76.0 Fatty (change of) liver, not elsewhere classified; R16.0 Hepatomegaly, not elsewhere classified; N28.1 Cyst of kidney, acquired; Z20.822 Contact with and (suspected) exposure to COVID-19; F41.9 Anxiety disorder, unspecified; F32.A Depression, unspecified; F43.10 Post-traumatic stress disorder, unspecified; F17.210 Nicotine dependence, cigarettes, uncomplicated
CPT/HCPCS: 36415; 70450; 71045; 72125; 74177; 76700; 80053; 81003; 82077; 82550; 83690; 83735; 85025; 85610; 87635; 93005; 96361; 96374; 96375; 99284; 99285; J1200; J2250; Q9967